=== PATIENT | female | born 1950 | race Caucasian/White ===

== ENCOUNTER 2018-12-15 10:33 | Inpatient (IN) ==
[2018-12-15] MEDS ORDERED: HEPARIN (PORCINE) 1000 UNIT/ML 10 ML (CATH LAB USE ONLY) ONE (10:43)
[2018-12-15] MEDS ORDERED: NiCARDipine HCL INJ 2.5 MG/ML 10 ML AMP ONE (10:43)
[2018-12-15] MEDS ORDERED: SODIUM CHLORIDE 0.9% 1000ML 1,000 ML IV STA (10:44)
[2018-12-15] MEDS ORDERED: MIDAZOLAM HCL 1 MG/ML 2ML VIAL ONE (10:44)
[2018-12-15] MEDS ORDERED: fentaNYL citrate 100 MCG/2 ML VIAL ONE (10:44)
[2018-12-15] MEDS ORDERED: NITROGLYCERIN/D5W 100MCG/ML 20ML SYR ONE (10:44)
[2018-12-15] MEDS ORDERED: GLUCAGON 2 MG in SYRINGE 0 ML IV STA (10:49)
[2018-12-15 10:50] LABS: Basophils # (auto) 0.02 K/uL (0-0.2); Basophils % (auto) 0.2 %; Eosinophils # (auto) 0.23 K/uL (0-0.5); Eosinophils % (auto) 1.8 %; Hematocrit (blood only) 39.6 % (37-47); Hemoglobin 13.8 g/dL (12.0-16.0); Immature Granulocytes # (auto) 0.18 K/uL (0.00-0.02); Immature Granulocytes % (auto) 1.4 %; Lymphocytes # (auto) 3.81 K/uL (1.2-3.4); Lymphocytes % (auto) 29.5 %; Mean Corpuscular Hgb Conc 34.8 g/dL (32-36); Mean Corpuscular Volume 90.6 fL (80-100); Mean Platelet Volume 10.9 fL (7.4-10.4); Monocytes % (auto) 9.3 %; Neutrophils # (auto) 7.47 K/uL (1.4-6.5); Neutrophils % (auto) 57.8 %; Platelet Count 219 K/uL (130-400); RDW Standard Deviation 43.1 fL (36.4-46.3); Red Blood Count 4.37 M/uL (4.2-5.4); White Blood Count 12.91 K/uL (4.8-10.8)
[2018-12-15] MEDS ORDERED: GLUCAGON FOR INJ 1 MG VIAL ONE (10:52)
[2018-12-15 10:54] LABS: iSTAT Creatinine 1.1 mg/dl (0.6-1.3); iSTAT Hemoglobin 12.6 g/dl (12.0-16.0); iSTAT Ionized Calcium 1.21 mmol/l (1.12-1.32); iSTAT Potassium 3.9 mEq/L (3.3-5.0)
[2018-12-15] MEDS ORDERED: ONDANSETRON INJ 2 MG/ML 2 ML VIAL ONE (11:00)
--- NOTE | 2018-12-15 11:02 | XRay Report ---
XR chest 1V portable HISTORY: Atypical Chest pain COMPARISON: None. FINDINGS: The heart is mildly enlarged. No definite pneumothorax. Defibrillator pads overlie the mid chest. Interstitial and vascular thickening consistent with mild pulmonary edema. No focal lung conso lidations. No pleural effusions. IMPRESSION: Mild cardiomegaly with mild interstitial pulmonary edema. Electronically signed by: Jairon Patel M.D. 12/15/2018 11:01 AM
[2018-12-15 11:03] LABS: INR 1.1 (0.9-1.1); Partial Thromboplastin Ratio 0.9; Partial Thromboplastin Time 23.4 Seconds (21.0-31.0); Prothrombin Time 11.2 Seconds (9.0-12.0)
[2018-12-15 11:08] LABS: Albumin Level 3.3 gm/dl (3.4-5.0); BUN Creatinine Ratio 21.1 (10-20); Calcium 9.2 mg/dl (8.5-10.1); Creatinine Clr Calc Pharmacy 45.9 ml/min; Est GFR (African American) 47.2; Est GFR (Non-African American) 40.7; Potassium 4.4 mmol/L (3.5-5.1)
[2018-12-15 11:10] LABS: Albumin Globulin Ratio 0.9 (0.9-2); Bilirubin,Total 0.6 mg/dl (0.2-1); Globulin 3.6 gm/dl (2.5-4.0); Total Protein 6.9 gm/dl (6.4-8.2)
[2018-12-15 11:19] LABS: Beta-Hydroxybutyrate 4.45 mg/dl (0.2-2.81); Troponin I 0.035 ng/ml (0-0.045)
[2018-12-15 11:32] LABS: T4 Free Thyroxine 1.07 ng/dl (0.8-1.6)
[2018-12-15 11:42] LABS: Lyme Ab IgG w/WB Rflx Negative (Negative)
[2018-12-15 11:43] LABS: Lyme Ab IgM w/WB Rflx Negative (Negative)
[2018-12-15] MEDS ORDERED: GLUCOSE 40% GEL 15 GM TUBE PO PRN (12:00)
[2018-12-15] MEDS ORDERED: ICU ELECTROLYTE REPLACEMENT PROTOCOL PRN (12:00)
[2018-12-15] MEDS ORDERED: CARBOHYDRATES FOR HYPOGLYCEMIA PO PRN (12:00)
[2018-12-15] MEDS ORDERED: LORazepam 0.5 MG/1 ML VIAL IV PRN (12:00)
[2018-12-15] MEDS ORDERED: ICU PROTOCOL FOR HYPERGLYCEMIA PRN (12:00)
[2018-12-15] MEDS ORDERED: DEXTROSE 50% 50 ML SYRINGE IV PRN (12:00)
[2018-12-15] MEDS ORDERED: SODIUM CHLORIDE 0.9% 1000ML 1,000 ML IV SCH (12:00)
[2018-12-15] MEDS ORDERED: GLUCAGON FOR INJ 1 MG VIAL SQ PRN (12:00)
[2018-12-15] MEDS ORDERED: GLUCOSE 10 TABS/TUBE PO PRN (12:00)
[2018-12-15] MEDS ORDERED: CARVEDILOL 3.125 MG TAB PO ONE (12:20)
[2018-12-15] MEDS ORDERED: FUROSEMIDE 20 MG in SYRINGE 0 ML IV ONE (12:23)
[2018-12-15] MEDS ORDERED: PERFLUTREN LIPID MICROSPHERE (DEFINITY) IV ONE (12:37)
--- NOTE | 2018-12-15 12:40 | Emergency Department Note ---
Entered by Natan Fay acting as a scribe for ED Provider Note CHIEF COMPLAINT: heart block, syncope HISTORY OF PRESENT ILLNESS: The patient is a 68 year old female who presents to the Emergency Room with a heart block. The patient passed out last night and again this morning. Her heart rate was in the 30s prior to arrival, and she was given two doses of atropine. EMS reports that when she passed out this morning, she fell in the shower, striking the back of her head and injuring her lower back. She states that she has lower back pain exacerbated by breathing but denies head or neck pain. She reports that she was told in the past that she was pre-diabetic. She checked her blood sugar with her husbands monitor, and it was in the 500s yesterday and in the 200s today. She notes ankle swelling in the past week and reports a current cough and nausea. She states that she has some left leg numbness from a prior ganglion cyst. She reports that she is currently visiting from [place]. She denies any other medical problems. She notes that she has been trying to keep hydrated. Pt denies LOC, headache, fevers, chills, diaphoresis, visual changes, neck pain, chest pain, breathing difficulties, vomiting, abdominal pain, melena, hematochezia, diarrhea, urinary symptoms, weakness, lymphadenopathy, rash, or other complaints. REVIEW OF SYSTEMS: See HPI for pertinent positives and negatives. A total of ten systems were reviewed and were otherwise negative. PMHx/PSHx: ganglion cyst, pre-diabetic SOCIAL HISTORY: Patient lives at home in [place]. PHYSICAL EXAM: GENERAL: Awake, alert, well-appearing, in no distress HENT: Normocephalic, atraumatic. Oropharynx unremarkable. EYES: Normal conjunctiva. Sclera non-icteric. NECK: Inspection normal. Non-tender. Supple. No nuchal rigidity. FROM. No masses. RESPIRATORY: Clear to auscultation. No wheezes. No rales. Normal respiratory effort. CARDIAC: Bradycardia. Normal rhythm. No murmurs. No rubs. Extremities warm and well perfused. Pulses equal. No JVD. GI: Soft, non-distended. No tenderness to palpation. No rebound or guarding. No masses. RECTAL: Deferred. MUSCULOSKELETAL: Atraumatic. Chest examination reveals no tenderness. The back is symmetrical on inspection without obvious abnormality or step-offs, but there is midline lumbar tenderness to palpation. There is no CVA tenderness to palpation. No joint edema. LOWER EXTREMITIES: Calves are equal size bilaterally and non-tender. Trace edema. No discoloration. NEURO: Normal sensorium. No sensory or motor deficits noted. SKIN: No rash or jaundice noted. EMERGENCY DEPARTMENT COURSE: 1020: I consulted Dr. Connolly Cardiology, who states that he is on his way to the ER. 1033: The patient has arrived to room A1. Past medical records reviewed. The patient was evaluated, and a complete history and physical examination were performed. 1108: Dr. Connolly is taking the patient to the laboratory apparatus glass blower. Dr. David [facility] Hospitalist will evaluate the patient for hospitalization. MEDICAL DECISION MAKING: Triage Nursing notes reviewed and agree them. Additional history obtained from the EMS crew and her . The patient's history was concerning for syncope and bradycardia. Differential diagnosis: Etiologies such as infection, hypoglycemia, electrolyte abnormalities, cardiac sources, intracerebral event, toxicologic, neurologic, as well as others were entertained. Physical examination: As above low back tenderness. Bradycardia noted. ER treatment provided: IV hydration with normal saline IV glucagon 2 mg given at cardiology's request. On reassessment the patient remained bradycardic but had normal blood pressure. Mental status is normal. Glucagon had no effect. Diagnostics interpretation by me: ECG: Marked sinus bradycardia. No acute ischemia. Heart block noted. The labs revealed a slight leukocytosis on CBC. Chemistry panel was unremarkable except for hyperglycemia. Lyme negative. Troponin negative. Imaging studies: Chest x-ray shows mild pulmonary edema Consultation: A consultation was placed with the flour mixer on-call, Dr. Sinclair. He asked that I discussed the case with the interventional list, Dr. Connolly. The case was discussed. Given the possible need for pacemaker he asked that a heart alert be called. I heart alert was called. Cardiology evaluated the patient in the emergency department. Temporary pacer was felt to be necessary. The patient was taken to the catheterization suite for further management. Consultation was also made with Dr. David for admission. The patient was taken to the catheterization suite prior to her lumbar imaging. Cardiology and internal medicine were made aware. Nursing was made aware as well. IMPRESSION: heart block, syncope, hyperglycemia, lower back pain PLAN: taken to catheterization lab, hospitalization CRITICAL CARE: I have personally spent 35 minutes of critical care time in the direct management of this patient. This includes bedside care, interpretation of diagnostic studies, and testing, discussion with consultants, patient, and family members, and other required patient management activities. This 35 minutes is in excess of all separately billable procedures. ATTESTATION: The scribe's documentation has been prepared under my direction and personally reviewed by me in its entirety. I confirm that the note above accurately reflects all work, treatment, procedures, and medical decision making performed by me. Impression & Plan Heart block, Syncope, Hyperglycemia, Lower back pain Past Med/Surg History Medical History Ganglion cyst Family History Other AAA (abdominal aortic aneurysm) Social History Current Living Situation Comment: lives in [place] Feels Safe at Home: Yes Smoking Status: Former smoker Hx Substance Use: No Results & Data Vital Signs Vital Signs - 24 hr 12/15/18 10:35 12/15/18 10:43 12/15/18 11:03 Temperature 36.6 C Temperature Source Oral Sepsis Recent Fever Within 48 Hours No Sepsis New/Unexplained Change in Mental Status No Sepsis Action Taken by Nursing No Action Required Pulse Rate 35 L 30 L 65 Pulse Rate [Left] 31 L Pulse Rate from SpO2 Sensor 35 L Respiratory Rate 14 12 16 Respiratory Effort / Characteristics Spontaneous Blood Pressure 102/70 Blood Pressure [Left Arm] Blood Pressure Mean 80 Blood Pressure Mean [Left Arm] Blood Pressure Position Lying Blood Pressure Position [Left Arm] Lying Pulse Oximetry 90 95 96 Oxygen Delivery Method Room Air Nasal Cannula Oxygen Flow Rate 2 12/15/18 11:04 Temperature Temperature Source Sepsis Recent Fever Within 48 Hours Sepsis New/Unexplained Change in Mental Status Sepsis Action Taken by Nursing Pulse Rate Pulse Rate [Left] 52 L Pulse Rate from SpO2 Sensor Respiratory Rate 16 Respiratory Effort / Characteristics Blood Pressure Blood Pressure [Left Arm] 160/90 H Blood Pressure Mean Blood Pressure Mean [Left Arm] 113 Blood Pressure Position Blood Pressure Position [Left Arm] Pulse Oximetry 93 Oxygen Delivery Method Nasal Cannula Oxygen Flow Rate 3 Home Medications Current Medication List: was personally reviewed by me Laboratory Data Attestation: I reviewed the patient's lab results. Result diagrams: 12/15/18 10:28 12/15/18 10:28 Lab Results 12/15/18 12/15/18 12/15/18 Range/Units 10:28 10:28 10:28 WBC 12.91 H (4.8-10.8) K/uL RBC 4.37 (4.2-5.4) M/uL Hgb 13.8 (12.0-16.0) g/dL POC Hgb (12.0-16.0) g/dl Hct 39.6 (37-47) % POC Hct (37-47) % MCV 90.6 (80-100) fL MCH 31.6 (25-34) pg MCHC 34.8 (32-36) g/dL RDW Std Deviation 43.1 (36.4-46.3) fL RDW Coeff of Opal 13.0 (11.5-14.5) % Plt Count 219 (130-400) K/uL MPV 10.9 H (7.4-10.4) fL Immature Gran % (Auto) 1.4 % Neut % (Auto) 57.8 % Lymph % (Auto) 29.5 % [place] % (Auto) 9.3 % Eos % (Auto) 1.8 % Baso % (Auto) 0.2 % Immature Gran # (Auto) 0.18 H (0.00-0.02) K/uL Neut # (Auto) 7.47 H (1.4-6.5) K/uL Lymph # (Auto) 3.81 H (1.2-3.4) K/uL [place] # (Auto) 1.20 H (0.11-0.59) K/uL Eos # (Auto) 0.23 (0-0.5) K/uL Baso # (Auto) 0.02 (0-0.2) K/uL PT 11.2 (9.0-12.0) Seconds INR 1.1 (0.9-1.1) APTT 23.4 (21.0-31.0) Seconds PTT Ratio 0.9 POC Sodium (135-144) mEq/L Sodium (136-145) mmol/L POC Potassium (3.3-5.0) mEq/L Potassium (3.5-5.1) mmol/L POC Chloride (101-112) mEq/L Chloride (98-107) mmol/L Carbon Dioxide (21-32) mmol/L POC Total CO2 (24-31) mEq/l Anion Gap (3-11) POC Anion Gap (16-25) mmol/L POC BUN (7-18) mg/dl BUN (7-18) mg/dl Creatinine (0.6-1.2) mg/dl POC Creatinine (0.6-1.3) mg/dl Est Cr Clr Drug Dosing ml/min Est GFR ( Amer) Est GFR (Non-Af Amer) BUN/Creatinine Ratio (10-20) Glucose (70-99) mg/dl POC Glucose (other) (70-99) mg/dl Calcium (8.5-10.1) mg/dl POC Ioniz Calcium [place] (1.12-1.32) mmol/l Magnesium (1.8-2.4) mg/dl Total Bilirubin (0.2-1) mg/dl AST (15-37) U/L ALT (12-78) U/L Alkaline Phosphatase (45-117) U/L Total Creatine Kinase (26-192) U/L POC Troponin I (0-0.045) ng/ml Troponin I (0-0.045) ng/ml Total Protein (6.4-8.2) gm/dl Albumin (3.4-5.0) gm/dl Globulin (2.5-4.0) gm/dl Albumin/Globulin Ratio (0.9-2) Lipase (73-393) U/L Beta-Hydroxybutyric Acd (0.2-2.81) mg/dl TSH (0.300-4.500) uIu/ml Free T4 (0.8-1.6) ng/dl Lyme Disease IgG Ab Negative (Negative) Lyme Disease IgM Ab Negative (Negative) 12/15/18 12/15/18 12/15/18 Range/Units 10:28 10:39 10:44 WBC (4.8-10.8) K/uL RBC (4.2-5.4) M/uL Hgb (12.0-16.0) g/dL POC Hgb 12.6 (12.0-16.0) g/dl Hct (37-47) % POC Hct 37 (37-47) % MCV (80-100) fL MCH (25-34) pg MCHC (32-36) g/dL RDW Std Deviation (36.4-46.3) fL RDW Coeff of Opal (11.5-14.5) % Plt Count (130-400) K/uL MPV (7.4-10.4) fL Immature Gran % (Auto) % Neut % (Auto) % Lymph % (Auto) % [place] % (Auto) % Eos % (Auto) % Baso % (Auto) % Immature Gran # (Auto) (0.00-0.02) K/uL Neut # (Auto) (1.4-6.5) K/uL Lymph # (Auto) (1.2-3.4) K/uL [place] # (Auto) (0.11-0.59) K/uL Eos # (Auto) (0-0.5) K/uL Baso # (Auto) (0-0.2) K/uL PT (9.0-12.0) Seconds INR (0.9-1.1) APTT (21.0-31.0) Seconds PTT Ratio POC Sodium 135 (135-144) mEq/L Sodium 134 L (136-145) mmol/L POC Potassium 3.9 (3.3-5.0) mEq/L Potassium 4.4 (3.5-5.1) mmol/L POC Chloride 99 L (101-112) mEq/L Chloride 100 (98-107) mmol/L Carbon Dioxide 25 (21-32) mmol/L POC Total CO2 25 (24-31) mEq/l Anion Gap 9.0 (3-11) POC Anion Gap 16.0 (16-25) mmol/L POC BUN 25 H (7-18) mg/dl BUN 28 H (7-18) mg/dl Creatinine 1.33 H (0.6-1.2) mg/dl POC Creatinine 1.1 (0.6-1.3) mg/dl Est Cr Clr Drug Dosing 45.9 ml/min Est GFR ( Amer) 47.2 Est GFR (Non-Af Amer) 40.7 BUN/Creatinine Ratio 21.1 H (10-20) Glucose 343 H (70-99) mg/dl POC Glucose (other) 343 H (70-99) mg/dl Calcium 9.2 (8.5-10.1) mg/dl POC Ioniz Calcium [place] 1.21 (1.12-1.32) mmol/l Magnesium 2.0 (1.8-2.4) mg/dl Total Bilirubin 0.6 (0.2-1) mg/dl AST 35 (15-37) U/L ALT 49 (12-78) U/L Alkaline Phosphatase 114 (45-117) U/L Total Creatine Kinase 62 (26-192) U/L POC Troponin I < 0.03 (0-0.045) ng/ml Troponin I 0.035 (0-0.045) ng/ml Total Protein 6.9 (6.4-8.2) gm/dl Albumin 3.3 L (3.4-5.0) gm/dl Globulin 3.6 (2.5-4.0) gm/dl Albumin/Globulin Ratio 0.9 (0.9-2) Lipase 110 (73-393) U/L Beta-Hydroxybutyric Acd 4.45 H (0.2-2.81) mg/dl TSH 8.890 H (0.300-4.500) uIu/ml Free T4 1.07 (0.8-1.6) ng/dl Lyme Disease IgG Ab (Negative) Lyme Disease IgM Ab (Negative) Administered Medications Discontinued Medications Fentanyl Citrate (Fentanyl Citrate) Confirm Administered Dose 100 mcg .ROUTE .STK-MED ONE Stop: 12/15/18 10:45 Last Admin: 12/15/18 11:24 Dose: 25 mcg Documented by: [id number] Glucagon (Glucagen) Confirm Administered Dose 2 mg .ROUTE .STK-MED ONE Stop: 12/15/18 10:53 Last Admin: 12/15/18 10:55 Dose: 2 mg Documented by: [id number] Heparin Sodium (Porcine) (Heparin Iv Bolus (Director Independent Use Only)) Confirm Administered Dose 10,000 units .ROUTE .STK-MED ONE Stop: 12/15/18 10:44 Last Admin: 12/15/18 11:23 Dose: Not Given Documented by: [id number] Heparin Sodium/Sodium Chloride (Heparin Sod/Nss 2 Units/Ml) Confirm Administered Dose 3,000 units IV .STK-MED ONE Stop: 12/15/18 10:44 Last Admin: 12/15/18 11:23 Dose: Not Given Documented by: [id number] Sodium Chloride (Nss 1000ml) 1,000 mls @ 125 mls/hr IV .Q8H STA Stop: 12/15/18 18:43 Last Admin: 12/15/18 11:03 Dose: 125 mls/hr Documented by: [id number] Glucagon 2 mg/ Syringe 2 mls @ 1 mls/min IV NOW STA Stop: 12/15/18 10:50 Last Admin: 12/15/18 10:56 Dose: Not Given Documented by: [id number] Midazolam HCl (Versed) Confirm Administered Dose 2 mg .ROUTE .STK-MED ONE Stop: 12/15/18 10:45 Last Admin: 12/15/18 11:24 Dose: 1 mg Documented by: [id number] Nicardipine HCl (Cardene) Confirm Administered Dose 25 mg .ROUTE .STK-MED ONE Stop: 12/15/18 10:44 Last Admin: 12/15/18 11:23 Dose: Not Given Documented by: [id number] Nitroglycerin/Dextrose (Nitroglycerin/D5w 100 Mcg/Ml 20ml Syringe) Confirm Administered Dose 2,000 mcg .ROUTE .STK-MED ONE Stop: 12/15/18 10:45 Last Admin: 12/15/18 11:24 Dose: Not Given Documented by: [id number] Ondansetron HCl (Zofran) Confirm Administered Dose 4 mg .ROUTE .STK-MED ONE Stop: 12/15/18 11:01 Last Admin: 12/15/18 11:02 Dose: 4 mg Documented by: [id number] Imaging Data Radiologist's Impression: Radiology results as stated below per my review and the radiologist's interpretation: XR chest 1V portable HISTORY: Atypical Chest pain COMPARISON: None. FINDINGS: The heart is mildly enlarged. No definite pneumothorax. Defibrillator pads overlie the mid chest. Interstitial and vascular thickening consistent with mild pulmonary edema. No focal lung consolidations. No pleural effusions. IMPRESSION: Mild cardiomegaly with mild interstitial pulmonary edema. Electronically signed by: Jairon Patel M.D. 12/15/2018 11:01 AM ECG Data Attestation: I personally reviewed and interpreted this ECG as follows: Indication: bradycardia Rate (beats per minute): ventricular rate 30 Rhythm: other (3rd degree block) Findings: no PVC and no ST elevation Blood Pressure Blood Pressure Findings: Elevated blood pressure Blood Pressure Disposition: further management by hospitalist Discharge Plan Visit Data Chief Complaint: Cardiac Assessment Stated Complaint: syncope ED Provider: Gabriel Florentino Discharge Problem: Heart block, Syncope, Hyperglycemia, Lower back pain Patient Disposition: Admitted As Inpatient Discharge Instructions Interventions: ED Discharge Assessment Last Done: 12/15/18 11:09 Discharge Problem: Syncope Qualifiers: Syncope type: unspecified Qualified Code(s): R55 - Syncope and collapse Lower back pain Qualifiers: Chronicity: unspecified Back pain laterality: unspecified Sciatica presence: without sciatica Qualified Code(s): M54.5 - Low back pain The scribe's documentation has been prepared under my direction and personally reviewed by me in its entirety. I confirm that the note above accurately re flects all work, treatment, procedures, and medical decision making performed by me.
--- NOTE | 2018-12-15 12:51 | History & Physical Report ---
Date of Service December 15, 2018 Assessment & Plan (1) Heart block: Patient had evidence of heart block is unclear whether her syncopal episode was related to heart block or arrhythmia. Initial preliminary echocardiogram results have concern for depressed ejection fraction. Patient is a temporary pacemaker placed. Given the concern for acute systolic heart failure with a depressed ejection fraction she will be begun on carvedilol today and if her renal function is tolerant may begin RENÉ inhibitor tomorrow. She is given 1 dose of IV Lasix today. Cardiology consultation will be Dr. Sinclair for discussions of whether the patient is a permanent device the ER she had a Lyme test which was negative initial troponin was unremarkable and the patient had an initial free T4 which was normal (2) Hyperglycemia: Patient is known of prediabetes she says her sugars have been up of late. She has lost weight attempts to treat her prediabetes. In the emergency department her glucoses were 2-300. She will be brought in on a diabetic diet and initially start with an insulin sliding scale with carb coverage. If long- term insulin is required while employed diabetic education however she is not on any oral medications and once risk of cardiac intervention is passed we may institute sulfonylurea and metformin (3) Lower back pain: Patient has some low back pain after her fall she is pending a CT scan of her lumbar spine History of Present Illness Primary Care Provider: NO PCP Per ER physians note "The patient is a 68 year old female who presents to the Emergency Room with a heart block. The patient passed out last night and again this morning. Her heart rate was in the 30s prior to arrival, and she was given two doses of atropine. EMS reports that when she passed out this morning, she fell in the shower, striking the back of her head and injuring her lower back. She states that she has lower back pain exacerbated by breathing but denies head or neck pain. She reports that she was told in the past that she was pre- diabetic. She checked her blood sugar with her husbands monitor, and it was in the 500s yesterday and in the 200s today. She notes ankle swelling in the past week and reports a current cough and nausea. She states that she has some left leg numbness from a prior ganglion cyst. She reports that she is currently visiting from [place]. She denies any other medical problems. " Patient was taken urgently to the cardiac catheterization lab where temporary pacemaker was placed. Initial chest x-ray showed pulmonary edema consistent with likely systolic heart failure and she does upon further questioning give a history of prehospital exertional dyspnea and some chest heaviness. She is a distant smoking history but has quit since age 33 In the ICU she is stable has no shortness of breath chest pain or pressure Allergies Allergy/AdvReac Type Severity Reaction Status Date / Time amoxicillin Allergy Anaphylaxis Unverified 12/15/18 11:47 erythromycin base Allergy Unknown Unverified 12/15/18 11:47 Past Med/Surg History Medical History Ganglion cyst Prediabetes Family History Other AAA (abdominal aortic aneurysm) Social History Current Living Situation Comment: lives in [place] Feels Safe at Home: Yes Smoking Status: Former smoker Hx Substance Use: No Review of Systems ROS: well nourished well developed. No double vision blurry vision No problems with speech or swallowing No palpitations, as mentioned has some chest pain associate with the dyspnea episodes which resolved quickly No Wheezing or breathing issues as mentioned had some prehospital dyspnea on exertion No abdominal pain nausea vomiting diarrhea changes in appetite or weight No burning urine urine frequency or changes in color No focal joint pain or muscle pain No skin rashes or oral lesions No unusual bruising or bleeding No focused back pain, loss of strength patient has loss of some sensation after foot surgery on the left No changes in memory or confusion Physical Exam Vital Signs (Past 24 Hours): Last Vital Signs Temp 36.6 C 12/15/18 10:43 Pulse 52 L 12/15/18 11:04 Resp 16 12/15/18 11:04 BP 160/90 H 12/15/18 11:04 93 12/15/18 11:04 The patient appeared well nourished and normally developed. Vital signs as documented. Head exam is unremarkable. normocephalic, atraumatic Neck is without jugular venous distension, thyromegaly, or lymphademopathy Lungs are clear to auscultation and percussion. Cardiac exam reveals a regular rhythm paced on the monitor no murmurs are heard . First and second heart sounds normal. Abdominal exam reveals normal bowel sounds, no masses, no organomegaly Extremities are mildly edematous bilateral and both pedal pulses are present Neurologic exam is A&Ox3, strength is equal bilateral Psychologically seems neither anxious or depressed Skin is warm Dry without bruises or lesions (1) Lower back pain Back pain laterality: unspecified Chronicity: unspecified Sciatica presence: without sciatica Qualified Code(s): M54.5 - Low back pain
[2018-12-15] MEDS ORDERED: OXYCODONE HCL IR 5 MG TAB (IMMEDIATE RELEASE) PO PRN (12:57)
[2018-12-15] MEDS ORDERED: MoRPHine SULFATE 4 MG/ML 1 ML CARP\\VIAL IV PRN (12:57)
[2018-12-15] MEDS ORDERED: MoRPHine SULFATE 2 MG/ML CARP IV PRN (12:57)
--- NOTE | 2018-12-15 13:24 | XRay Report ---
RIGHT SHOULDER 3 VIEWS HISTORY: r shoulder pain COMPARISON: None. FINDINGS: There is no fracture or dislocation. The right clavicle is intact. There is mild AC joint a rthrosis. Mild supraspinatus calcific tendinitis. No radiopaque foreign bodies. IMPRESSION: No fracture or dislocation within the right shoulder. Electronically signed by: Jairon Patel M.D. 12/15/2018 1:22 PM
--- NOTE | 2018-12-15 13:27 | XRay Report ---
XR chest 1V portable HISTORY: S/P Temp pacer, supine please until CT spine done COMPARISON: Chest 12/15/2018. FINDINGS: No pneumothorax. No pleural effusions. Perihilar interstitial vascular thickening has impro lacie. This is consistent with mild pulmonary edema. The heart is borderline enlarged. IMPRESSION: Slight improvement in the mild interstitial pulmonary edema. Electronically signed by: Jairon Patel M.D. 12/15/2018 1:26 PM
--- NOTE | 2018-12-15 13:36 | Critical Care Consultation ---
Date of Consultation December 15, 2018 Assessment & Plan (1) Admitted to intensive care unit: The patient was found to be in complete heart block in the emergency room. She was taken to the cardiac maintenance shop laborer immediately and temporary pacemaker was placed. Currently she has got paced rhythm at 60 and she is hemodynamically stable and in fact her blood pressure is elevated and she is also oxygenating at 98% on 2 L nasal cannula. The patient also had echocardiogram done which revealed depressed ejection fraction of about 30 and she was in congestive heart failure with leg edema. The patient was started on carvedilol and also was given IV Lasix. We are going to monitor her urinary output. We also ruling out for acute myocardial infarction. Initial troponin was negative. She was also evaluated for Lyme disease which was negative also her TSH was elevated but T4 was reported as normal. The patient will be also on ICU glycemic control because of her elevated blood sugar to 300 range. She was complaining of shoulder pain as well as back pain. She had the shoulder x-ray done which did not reveal any injury or fracture. The patient is scheduled to go for CT of the back very soon. We are going to continue with all other management as prescribed. We will also monitor her urinary output. I have discussed with the primary care doctor Agustín as well as cardiology and we are going to follow the recommendations. I have spent greater than 55 minutes of critical care time. (2) Heart block: (3) Syncope: (4) Hyperglycemia: (5) Lower back pain: History of Present Illness Reason for Consultation: Heart block. Status post temporary pacemaker placement. Requesting Physician: Carlos Randolph MD Attending Physician: Carlos Randolph MD History of Present Illness Per ER physians note "The patient is a 68 year old female who presents to the Emergency Room with a heart block. The patient passed out last night and again this morning. Her heart rate was in the 30s prior to arrival, and she was given two doses of atropine. EMS reports that when she passed out this morning, she fell in the shower, striking the back of her head and injuring her lower back. She states that she has lower back pain exacerbated by breathing but denies head or neck pain. She reports that she was told in the past that she was pre- diabetic. She checked her blood sugar with her husbands monitor, and it was in the 500s yesterday and in the 200s today. She notes ankle swelling in the past week and reports a current cough and nausea. She states that she has some left leg numbness from a prior ganglion cyst. She reports that she is currently visiting from [place]. She denies any other medical problems. " Patient was taken urgently to the cardiac catheterization lab where temporary pacemaker was placed. Initial chest x-ray showed pulmonary edema consistent with likely systolic heart failure and she does upon further questioning give a history of prehospital exertional dyspnea and some chest heaviness. She is a distant smoking history but has quit since age 33. Currently the patient is resting comfortably and her heart rhythm is sinus and paced. She is still complaining of right shoulder pain. The x-ray was done which is pending. The chest x-ray did not reveal any obvious fracture or deformity but was consistent with the paced wire into the right ventricle and also was consistent with cardiomegaly and bilateral congestion. The patient d enies having any shortness of breath or chest pain or cough fever chills or hemoptysis. She also denies having any abdominal pain, nausea, vomiting. She has been complaining of back pain from the fall and also right shoulder pain. The shoulder x-ray did not reveal any fracture. 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 Also the review of system is as mentioned above in history of present illness. She also denies having any chest pain or palpitations. Denies having any swollen neck or lymphadenopathy. She denies having any abdominal pain nausea vomiting. Also denies having any fever chills wheezing orthopnea or paroxysmal nocturnal dyspnea. The patient also denies having any blood in the stool urine no painful micturition no diarrhea. She is not having any rash or lesions. She has been complaining of swollen ankles which has been going on for a few days. She is complaining of right shoulder pain after the fall and she is also complaining of back pain after the fall. Physical Exam Vital Signs (Past 24 Hours): Last Vital Signs Temp 36.6 C 12/15/18 10:43 Pulse 52 L 12/15/18 11:04 Resp 16 12/15/18 11:04 BP 160/90 H 12/15/18 11:04 Pulse Ox 93 12/15/18 11:04 Physical Exam: GENERAL: The patient appeared well nourished and normally developed. Resting comfortably not any acute distress. VITALS: Vital signs as documented. HEAD: Exam is unremarkable. normocephalic, atraumatic NECK: Is without jugular venous distension, thyromegaly, or lymphademopathy LUNGS: Bilateral air entry with decreased breath sounds to his bases. She also has crackles intermediate up bilaterally. There is no wheezing no rhonchi. CARDIAC: Exam reveals a regular rhythm paced on the monitor no murmurs are heard . First and second heart sounds normal. ABDOMINAL: Exam reveals normal bowel sounds, no masses, no organomegaly EXTREMITIES: Are mildly edematous bilateral and both pedal pulses are present NEUROLOGIC: Exam is A&Ox3, strength is equal bilateral and she is moving all her extremities. PSYCHOLOGICAL: Seems neither anxious or depressed SKIN: Is warm Dry without bruises or lesions Results & Data Laboratory Results Abnormal lab results 12/15/18 12/15/18 12/15/18 Range/Units 10:28 10:28 10:39 WBC 12.91 H (4.8-10.8) K/uL MPV 10.9 H (7.4-10.4) fL Immature Gran # (Auto) 0.18 H (0.00-0.02) K/uL Neut # (Auto) 7.47 H (1.4-6.5) K/uL Lymph # (Auto) 3.81 H (1.2-3.4) K/uL Woodward # (Auto) 1.20 H (0.11-0.59) K/uL Sodium 134 L (136-145) mmol/L POC Chloride 99 L (101-112) mEq/L POC BUN 25 H (7-18) mg/dl BUN 28 H (7-18) mg/dl Creatinine 1.33 H (0.6-1.2) mg/dl BUN/Creatinine Ratio 21.1 H (10-20) Glucose 343 H (70-99) mg/dl POC Glucose (other) 343 H (70-99) mg/dl Albumin 3.3 L (3.4-5.0) gm/dl Beta-Hydroxybutyric Acd 4.45 H (0.2-2.81) mg/dl TSH 8.890 H (0.300-4.500) uIu/ml Diagnostic Findings XR chest 1V portable HISTORY: S/P Temp pacer, supine please until CT spine done COMPARISON: Chest 12/15/2018. FINDINGS: No pneumothorax. No pleural effusions. Perihilar interstitial vascular thickening has improved. This is consistent with mild pulmonary edema. The heart is borderline enlarged. IMPRESSION: Slight improvement in the mild interstitial pulmonary edema. Electronically signed by: Jairon Patel M.D. 12/15/2018 1:26 PM RIGHT SHOULDER 3 VIEWS HISTORY: r shoulder pain COMPARISON: None. FINDINGS: There is no fracture or dislocation. The right clavicle is intact. There is mild AC joint arthrosis. Mild supraspinatus calcific tendinitis. No radiopaque foreign bodies. IMPRESSION: No fracture or dislocation within the right shoulder. Electronically signed by: Jairon Patel M.D. 12/15/2018 1:22 PM Medications Administered Current Inpatient Medications Carvedilol (Coreg) 3.125 mg PO BID SUSHILA Stop: 01/14/19 20:59 Dextrose (Dextrose 50%) 25 - 50 ml IV UD PRN; Protocol PRN Reason: Hypoglycemia Protocol Stop: 01/14/19 11:59 Glucagon (Glucagen) 1 mg SQ UD PRN; Protocol PRN Reason: Hypoglycemia Protocol Stop: 01/14/19 11:59 Glucose (Dex4 Glucose) 4 - 8 tabs PO UD PRN; Protocol PRN Reason: Hypoglycemia Protocol Stop: 01/14/19 11:59 Glucose (Glucose 40%) 15 - 30 gm PO UD PRN; Protocol PRN Reason: Hypoglycemia Protocol Stop: 01/14/19 11:59 Lorazepam (Ativan) 0.5 mg in 1 mls @ 1 mls/min IV Q4H PRN PRN Reason: Agitation Stop: 01/14/19 11:59 Insulin Aspart (Novolog Flexpen) 0 units SC ACHS SUSHILA Stop: 01/14/19 16:29 Miscellaneous (Icu Protocol For Hyperglycemia) 1 ea N/A PRN PRN; Protocol PRN Reason: Hyperglycemia Protocol Stop: 12/17/18 11:59 Miscellaneous ([facility]cu Electrolyte Replacement Protocol) 1 ea N/A UD PRN PRN Reason: for e-lyte repletion Stop: 12/22/18 11:59 Miscellaneous (Carbohydrates For Hypoglycemia) 15 - 30 gm PO UD PRN PRN Reason: Hypoglycemia Treatment Stop: 01/14/19 11:59 Morphine Sulfate (Morphine Sulfate) 2 mg IV Q4 PRN PRN Reason: Pain Stop: 12/29/18 12:56 Morphine Sulfate (Morphine Sulfate) 4 mg IV Q4 PRN PRN Reason: Pain Stop: 12/29/18 12:56 Oxycodone HCl (Roxicodone Immediate Rel) 10 mg PO Q6H PRN PRN Reason: Pain Stop: 12/29/18 12:56 (1) Syncope Syncope type: unspecified Qualified Code(s): R55 - Syncope and collapse (2) Lower back pain Back pain laterality: unspecified Chronicity: unspecified Sciatica presence: without sciatica Qualified Code(s): M54.5 - Low back pain
[2018-12-15] MEDS ORDERED: PHARMACY GLYCEMIC MGMT CONSULT SCH (14:00)
[2018-12-15] MEDS ORDERED: INSULIN ASPART 100 UNITS/ML 3 ML PEN SC ONE (14:15)
[2018-12-15] MEDS ORDERED: INSULIN GLARGINE SOLOSTAR 100 UNITS/ML 3 ML PEN SC ONE (14:15)
--- NOTE | 2018-12-15 14:15 | Pharmacy Report ---
Pharmacy Glycemic Short Note 2 - Date of Service December 15, 2018 - Glycemic Short BSG Results (Last 24 hours): 12/15/18 12/15/18 10:28 10:39 Glucose 343 H POC Glucose (other) 343 H OUTPATIENT ANTIDIABETIC REGIMEN: * n/a * A1c = ? ASSESSMENT: * Patient w/ h/o "pre-diabetes" admitted for [facility], now s/p temporary pacer. - Lyme screening negative. ACS workup ongoing. * GLU on admission 343. Of note, she did receive a dose of glucagon in the ED for bradycardia - her f/u BSG may be even higher * We do not have a recent A1c, however there is an order for this lab tomorrow AM * Will initiate weight based basal/bolus regimen based upon pt weight and "moderate" stress level. 1st doses of both Lantus and Novolog STAT. * Given possibility of ACS, will also add order to begin IV insulin drip per moderate stress protocol to begin if BSGs > 180 x 2 PLAN FOR INPATIENT GLYCEMIC CONTROL: * Basal insulin * Lantus SQ BID * 15 units x1 STAT * then per the following scale: 0 units if less than 110, 8 units if 110- 140, 15 units if > 140 * Bolus insulin * NovoLog per scale ACHS + 0000 + 0400 tonight * Goal Range: Low 110 mg/dL - High 140 mg/dL * Correction Factor: 25 mg/dL/unit * Nutritional / Prandial insulin per carb ratio of 1 unit per 8 grams CHO consumed * If BSG remains > 180 x 2 despite these insulin changes, begin IV insulin infusion per moderate stress protocol, goal range 120-180 PLAN FOR DISCHARGE: * to be determined
--- NOTE | 2018-12-15 14:46 | CT Scan Report ---
LUMBAR SPINE CT CT DOSE: 876.68 mGy.cm HISTORY: Low back pain. fall TECHNIQUE: Multiaxial CT images of the lumbar spine were performed and reformatted in the sagittal an d coronal plane without the use of contrast. A dose lowering technique was utilized adhering to the principles of ALARA. COMPARISON: None. FINDINGS: No fracture or subluxation within the lumbar spine. Moderate to severe disc space narrowing at L4-L5. Mild acute superior endplate compression fracture at T12. No associated retropulsion. This demonstrates less than 10% loss of height. Small bilateral pleural effusions. Calcified uterine fibr oid is identified. No significant central canal narrowing. IMPRESSION: There is an acute mild superior endplate compression fracture at T12 which demonstrates less than 10% loss of height. No significant central canal narrowing. Electronically signed by: Jairon Patel M.D. 12/15/2018 2:44 PM
--- NOTE | 2018-12-15 15:18 | Pharmacy Report ---
Pharmacy Glycemic Short Note 2 - Date of Service December 15, 2018 - Glycemic Short BSG Results (Last 24 hours): 12/15/18 12/15/18 10:28 10:39 Glucose 343 H POC Glucose (other) 343 H OUTPATIENT ANTIDIABETIC REGIMEN: * ASSESSMENT: * PLAN FOR INPATIENT GLYCEMIC CONTROL: * Hold outpatient oral diabetes medications * Basal insulin * Lantus [] units SQ BID * Bolus insulin * NovoLog per scale ACHS or Q6hrs while NPO * Goal Range: Low [] mg/dL - High [] mg/dL * Correction Factor: [] mg/dL/unit * Nutritional / Prandial insulin per carb ratio of 1 unit per [] grams CHO consumed PLAN FOR DISCHARGE: *
[2018-12-15] MEDS: INSULIN ASPART 100 UNITS/ML 3 ML PEN SC SCH ×2 (16:34→21:13)
[2018-12-15 17:11] LABS: Appearance Urine Clear (Clear); Bacteria Urine Automated Negative (Negative); Bilirubin Urine Negative (Negative); Blood Urine Trace (Negative); Color Urine Yellow; Epithelial Cell Urine Auto 20-30 /lpf (0-5); Glucose Urine UA 3+ (Negative); Ketones Urine Negative (Negative); Leukocyte Esterase Urine 2+ (Negative); Nitrite Urine Negative (Negative); Protein Urine 1+ (Negative); RBC Urine Automated 0-4 /hpf (0-4); Specific Gravity Urine 1.015 (1.000-1.030); Urobilinogen Urine Negative (Negative); WBC Urine Automated >30 /hpf (0-5)
[2018-12-15] MEDS ORDERED: NovoLIN-R BOLUS FROM BAG IV ONE (18:45)
[2018-12-15] MEDS ORDERED: INSULIN REGULAR 250 UNITS in SODIUM CHLORIDE 0.9% 247.5 ML IV SCH (18:45)
[2018-12-15] MEDS ORDERED: INSULIN GLARGINE SOLOSTAR 100 UNITS/ML 3 ML PEN SC SCH (21:00)
[2018-12-15] MEDS: CARVEDILOL 3.125 MG TAB PO SCH (21:12)
[2018-12-15] MEDS: HEPARIN SOD 5,000 UNIT/0.5 ML VIAL SQ SCH (21:15)
--- NOTE | 2018-12-15 21:32 | Operative Report ---
DATE OF OPERATION: 12/15/2018 INDICATIONS: Presyncope then syncope in a 68-year-old female with a past medical history of "prediabetes" with a second-degree type 2 AV block, 1 and 3 conduction. Effective mercedes response of 30 beats per minute with normal blood pressure. PROCEDURE PERFORMED: Include a central venous access temporary pacer, radiological interpretation and supervision. METHOD: Upon arrival in the skill labor, the patient was prepped and draped in the usual sterile fashion. After local infiltration of 2% lidocaine, a 6-Moroccan glide sheath was placed in the right internal jugular via the central approach. Sheath was aspirated and flushed and sutured to the right neck. A 5-[place]occan balloon tipped pacing wire was advanced under fluoroscopic guidance to the inferior aspect of the right ventricle, where secure position was located and pacer threshold was determined to be 1 milliamp. The pacer wire was sutured to the sheath at 33 cm and a sterile sleeve was secured to the sheath. Sterile dressing was applied. The patient returned to her room in good condition. COMPLICATIONS: None. FINDINGS: The patient was pacing at 60 beats per minute with an output of 5 milliamps at full demand on departure from the skill labor. IMPRESSION: Successful temporary pacemaker. I attest to the content of the Intraoperative Record and any orders documented therein. Any exception s are noted below.
[2018-12-16] MEDS ORDERED: INSULIN ASPART 100 UNITS/ML 3 ML PEN SC SCH
[2018-12-16] MEDS: HEPARIN SOD 5,000 UNIT/0.5 ML VIAL SQ SCH ×3 (05:44→20:33)
[2018-12-16] MEDS: CARVEDILOL 3.125 MG TAB PO SCH (07:36)
--- NOTE | 2018-12-16 07:36 | Hospitalist Progress Note ---
Date of Service December 16, 2018 Assessment & Plan (1) Heart block: Patient had evidence of heart block is unclear whether her syncopal episode was related to heart block or arrhythmia. Initial preliminary echocardiogram results have concern for depressed ejection fraction. Patient is a temporary pacemaker placed. Given the concern for acute systolic heart failure with a depressed ejection fraction patient will proceed to ischemic workup to try to determine if her depressed ejection fraction is from ischemia which likely could also impact her conducting system. This will be repaired if found but if not the patient will then proceed to likely permanent pacemaker and possible defibrillator (2) Hyperglycemia: Patient is known of prediabetes she says her sugars have been up of late. She has lost weight attempts to treat her prediabetes. Sliding scale plus long- term insulin ,diabetic education will help us determine her long-term treatment course since she is not from the area we may try metformin once her interventional cardiac procedures past, hemoglobin A1c was ordered on admission will not be run until Monday (3) Thoracic compression fracture: Subjective this pt does not have any symptoms, Dr Sinclair did turn down pacer to 30 and there was no intrinisic greens picker so will proceed to ischemic workup and possible pacemaker this week Review of Systems ROS: well nourished well developed. No double vision blurry vision No problems with speech or swallowing No palpitations, chest pain or pressure trace lower extremity swelling No Wheezing or breathing issues No abdominal pain nausea vomiting diarrhea No burning urine urine frequency or changes in color No focal joint pain or muscle pain No skin rashes or oral lesions No unusual bruising or bleeding No focused back pain or numbness or loss of strength No changes in memory or confusion Physical Exam Vital Signs (Past 24 Hours): Last Vital Signs Temp 36.7 C 12/16/18 04:00 Pulse 60 12/16/18 06:00 Resp 16 12/16/18 06:00 BP 149/92 H 12/16/18 06:00 Pulse Ox 95 12/16/18 06:00 the patient appeared well nourished and normally developed. Vital signs as documented. Head exam is unremarkable. normocephalic, atraumatic Neck is without jugular venous distension, thyromegaly, or lymphademopathy Lungs are clear to auscultation and percussion. Cardiac exam reveals Rhythm is regular it is paced on the monitor. First and second heart sounds normal. Abdominal exam reveals normal bowel sounds, no masses, no organomegaly Extremities are mildly edematous and both pedal pulses are present Neurologic exam is A&Ox3, no focal deficits, strength is equal bilateral Psychologically seems neither anxious or depressed Skin is warm Dry without bruises or lesions
[2018-12-16 07:52] LABS: BUN Creatinine Ratio 22.8 (10-20); Calcium 8.7 mg/dl (8.5-10.1); Creatinine Clr Calc Pharmacy 65.4 ml/min; Est GFR (African American) 71.7; Est GFR (Non-African American) 61.9; Magnesium 1.8 mg/dl (1.8-2.4); Potassium 3.9 mmol/L (3.5-5.1)
[2018-12-16 07:55] LABS: Chol HDL Ratio 4; Cholesterol 155 mg/dl (0-200); HDL Cholesterol 43 mg/dl; LDL Cholesterol Calculated 83 mg/dl; Triglycerides 147 mg/dl (0-150); VLDL Cholesterol 29 mg/dl
[2018-12-16 07:57] LABS: Phosphorus 3.5 mg/dl (2.5-4.9); Troponin I 0.492 ng/ml (0-0.045)
[2018-12-16] MEDS: INSULIN ASPART 100 UNITS/ML 3 ML PEN SC SCH ×4 (08:05→20:38)
--- NOTE | 2018-12-16 08:54 | Critical Care Progress Note ---
Date of Service December 16, 2018 Assessment & Plan (1) Admitted to intensive care unit: The patient received temporary pacemaker yesterday. Overall she seems to be doing better. She has got paced rhythm at 60. She is hemodynamically stable. Her pain has also improved but she is still having some pain in her back where she has got fractured vertebra. She denies having any headache dizziness or syncopal episode. Also she is being ruled out for myocardial infarction. Her troponin seems to be going down. The patient is scheduled for go for cardiac cath tomorrow and also possibility of AICD placement and a permanent pacemaker. We also controlling her blood sugar in ICU with ICU glyc emic control. We have reviewed her chest x-ray and a shoulder x-ray and they did not reveal any abnormalities but the CT scan of the lumbar spine revealed compression fracture of T12 vertebra. We are going to continue with all the management as prescribed and we also going to follow the recommendation from the cardiology. She will be also out of bed to chair as tolerated. Her magnesium was also low which we have replaced with 2 g of magnesium. I have discussed with the patient in detail and answered all questions. I have also discussed with the primary care as well as the field assembly supervisor. Have spent greater than 35 minutes of critical care time. (2) Heart block: (3) Syncope: (4) Hyperglycemia: (5) Lower back pain: Subjective The patient is resting comfortably. The patient received the pacemaker yesterday and currently she has got a paced rhythm at 60/min. Currently she is hemodynamically stable. She is still complaining of back pain. The patient had a CT of the spine done which revealed compression fracture of the T12. She is still also complaining pain in her right shoulder after the fall and the shoulder x-ray and that did not reveal any abnormalities. She denies having any headache dizziness or syncopal episode. Also denies having any swollen glands. The patient also denies having any chest pain or palpitations. Denies having any abdominal pain nausea vomiting. She has been complaining of back pain as well as shoulder pain. She was also evaluated by cardiology and she is scheduled to go for cardiac cath most probably tomorrow. She may also go for permanent pacemaker placement and or AICD. Physical Exam Vital Signs (Past 24 Hours): Last Vital Signs Temp 36.7 C 12/16/18 04:00 Pulse 60 12/16/18 06:00 Resp 16 12/16/18 06:00 BP 149/92 H 12/16/18 06:00 Pulse Ox 95 12/16/18 06:00 Physical Exam: GENERAL: The patient appeared well nourished and normally developed. Resting comfortably not any acute distress. VITALS: Vital signs as documented. HEAD: Exam is unremarkable. normocephalic, atraumatic NECK: Is without jugular venous distension, thyromegaly, or lymphademopathy LUNGS: Bilateral air entry with decreased breath sounds to his bases. She also has crackles mcc up bilaterally. There is no wheezing no rhonchi. CARDIAC: Exam reveals a regular rhythm paced on the monitor no murmurs are heard . First and second heart sounds normal. ABDOMINAL: Exam reveals normal bowel sounds, no masses, no organomegaly EXTREMITIES: Are mildly edematous bilateral and both pedal pulses are present NEUROLOGIC: Exam is A&Ox3, strength is equal bilateral and she is moving all her extremities. PSYCHOLOGICAL: Seems neither anxious or depressed SKIN: Is warm Dry without bruises or lesions Results & Data Laboratory Results Abnormal lab results 12/15/18 12/15/18 12/15/18 Range/Units 10:28 10:39 14:44 Sodium 134 L (136-145) mmol/L POC Chloride 99 L (101-112) mEq/L POC BUN 25 H (7-18) mg/dl BUN 28 H (7-18) mg/dl Creatinine 1.33 H (0.6-1.2) mg/dl BUN/Creatinine Ratio 21.1 H (10-20) Glucose 343 H (70-99) mg/dl POC Glucose 385 H* (70-99) POC Glucose (other) 343 H (70-99) mg/dl Troponin I (0-0.045) ng/ml Albumin 3.3 L (3.4-5.0) gm/dl Beta-Hydroxybutyric Acd 4.45 H (0.2-2.81) mg/dl TSH 8.890 H (0.300-4.500) uIu/ml Urine Protein (Negative) Urine Glucose (UA) (Negative) Urine Blood (Negative) Ur Leukocyte Esterase (Negative) Urine WBC (Auto) (0-5) /hpf U Epithel Cells (Auto) (0-5) /lpf 12/15/18 12/15/18 12/15/18 Range/Units 16:10 16:25 16:28 Sodium (136-145) mmol/L POC Chloride (101-112) mEq/L POC BUN (7-18) mg/dl BUN (7-18) mg/dl Creatinine (0.6-1.2) mg/dl BUN/Creatinine Ratio (10-20) Glucose (70-99) mg/dl POC Glucose 364 H* 381 H* (70-99) POC Glucose (other) (70-99) mg/dl Troponin I (0-0.045) ng/ml Albumin (3.4-5.0) gm/dl Beta-Hydroxybutyric Acd (0.2-2.81) mg/dl TSH (0.300-4.500) uIu/ml Urine Protein 1+ H (Negative) Urine Glucose (UA) 3+ H (Negative) Urine Blood Trace H (Negative) Ur Leukocyte Esterase 2+ H (Negative) Urine WBC (Auto) >30 H (0-5) /hpf U Epithel Cells (Auto) 20-30 H (0-5) /[facility] 12/15/18 12/15/18 12/15/18 Range/Units 18:05 18:08 20:24 Sodium (136-145) mmol/L POC Chloride (101-112) mEq/L POC BUN (7-18) mg/dl BUN (7-18) mg/dl Creatinine (0.6-1.2) mg/dl BUN/Creatinine Ratio (10-20) Glucose (70-99) mg/dl POC Glucose 275 H 126 H (70-99) POC Glucose (other) (70-99) mg/dl Troponin I 1.000 H* (0-0.045) ng/ml Albumin (3.4-5.0) gm/dl Beta-Hydroxybutyric Acd (0.2-2.81) mg/dl TSH (0.300-4.500) uIu/ml Urine Protein (Negative) Urine Glucose (UA) (Negative) Urine Blood (Negative) Ur Leukocyte Esterase (Negative) Urine WBC (Auto) (0-5) /hpf U Epithel Cells (Auto) (0-5) /[facility] 12/15/18 12/15/18 12/15/18 Range/Units 21:07 22:11 23:25 Sodium (136-145) mmol/L POC Chloride (101-112) mEq/L POC BUN (7-18) mg/dl BUN (7-18) mg/dl Creatinine (0.6-1.2) mg/dl BUN/Creatinine Ratio (10-20) Glucose (70-99) mg/dl POC Glucose 136 H 141 H 138 H (70-99) POC Glucose (other) (70-99) mg/dl Troponin I (0-0.045) ng/ml Albumin (3.4-5.0) gm/dl Beta-Hydroxybutyric Acd (0.2-2.81) mg/dl TSH (0.300-4.500) uIu/ml Urine Protein (Negative) Urine Glucose (UA) (Negative) Urine Blood (Negative) Ur Leukocyte Esterase (Negative) Urine WBC (Auto) (0-5) /hpf U Epithel Cells (Auto) (0-5) /[facility] 12/16/18 12/16/18 12/16/18 Range/Units 00:25 03:02 05:06 Sodium (136-145) mmol/L POC Chloride (101-112) mEq/L POC BUN (7-18) mg/dl BUN (7-18) mg/dl Creatinine (0.6-1.2) mg/dl BUN/Creatinine Ratio (10-20) Glucose (70-99) mg/dl POC Glucose 133 H 128 H 126 H (70-99) POC Glucose (other) (70-99) mg/dl Troponin I (0-0.045) ng/ml Albumin (3.4-5.0) gm/dl Beta-Hydroxybutyric Acd (0.2-2.81) mg/dl TSH (0.300-4.500) uIu/ml Urine Protein (Negative) Urine Glucose (UA) (Negative) Urine Blood (Negative) Ur Leukocyte Esterase (Negative) Urine WBC (Auto) (0-5) /hpf U Epithel Cells (Auto) (0-5) /[facility] 12/16/18 12/16/18 12/16/18 Range/Units 07:02 07:06 08:01 Sodium (136-145) mmol/L POC Chloride (101-112) mEq/L POC BUN (7-18) mg/dl BUN 22 H (7-18) mg/dl Creatinine (0.6-1.2) mg/dl BUN/Creatinine Ratio 22.8 H (10-20) Glucose 118 H (70-99) mg/dl POC Glucose 119 H 154 H (70-99) POC Glucose (other) (70-99) mg/dl Troponin I 0.492 H* (0-0.045) ng/ml Albumin (3.4-5.0) gm/dl Beta-Hydroxybutyric Acd (0.2-2.81) mg/dl TSH (0.300-4.500) uIu/ml Urine Protein (Negative) Urine Glucose (UA) (Negative) Urine Blood (Negative) Ur Leukocyte Esterase (Negative) Urine WBC (Auto) (0-5) /hpf U Epithel Cells (Auto) (0-5) /lpf 12/16/18 12/16/18 12/16/18 Range/Units 09:07 09:57 11:02 Sodium (136-145) mmol/L POC Chloride (101-112) mEq/L POC BUN (7-18) mg/dl BUN (7-18) mg/dl Creatinine (0.6-1.2) mg/dl BUN/Creatinine Ratio (10-20) Glucose (70-99) mg/dl POC Glucose 177 H 180 H 164 H (70-99) POC Glucose (other) (70-99) mg/dl Troponin I (0-0.045) ng/ml Albumin (3.4-5.0) gm/dl Beta-Hydroxybutyric Acd (0.2-2.81) mg/dl TSH (0.300-4.500) uIu/ml Urine Protein (Negative) Urine Glucose (UA) (Negative) Urine Blood (Negative) Ur Leukocyte Esterase (Negative) Urine WBC (Auto) (0-5) /hpf U Epithel Cells (Auto) (0-5) /lpf Diagnostic Findings LUMBAR SPINE CT CT DOSE: 876.68 mGy.cm HISTORY: Low back pain. fall TECHNIQUE: Multiaxial CT images of the lumbar spine were performed and reformatted in the sagittal and coronal plane without the use of contrast. A dose lowering technique was utilized adhering to the principles of ALARA. COMPARISON: None. FINDINGS: No fracture or subluxation within the lumbar spine. Moderate to severe disc space narrowing at L4-L5. Mild acute superior endplate compression fracture at T12. No associated retropulsion. This demonstrates less than 10% loss of height. Small bilateral pleural effusions. Calcified uterine fibroid is identified. No significant central canal narrowing. IMPRESSION: There is an acute mild superior endplate compression fracture at T12 which demonstrates less than 10% loss of height. No significant central canal narrowing. Electronically signed by: Jairon Patel M.D. 12/15/2018 2:44 PM Medications Administered Current Inpatient Medications Carvedilol (Coreg) 6.25 mg PO BID [facility] Stop: 01/15/19 20:59 Dextrose (Dextrose 50%) 25 - 50 ml IV UD PRN; Protocol PRN Reason: Hypoglycemia Protocol Stop: 01/14/19 11:59 Glucagon (Glucagen) 1 mg SQ UD PRN; Protocol PRN Reason: Hypoglycemia Protocol Stop: 01/14/19 11:59 Glucose (Dex4 Glucose) 4 - 8 tabs PO UD PRN; Protocol PRN Reason: Hypoglycemia Protocol Stop: 01/14/19 11:59 Glucose (Glucose 40%) 15 - 30 gm PO UD PRN; Protocol PRN Reason: Hypoglycemia Protocol Stop: 01/14/19 11:59 Heparin Sodium (Porcine) (Heparin Sodium (Porcine)) 5,000 units SQ Q8 [facility] Stop: 01/14/19 21:59 Last Admin: 12/16/18 05:44 Dose: 5,000 units Documented by: Lorazepam (Ativan) 0.5 mg in 1 mls @ 1 mls/min IV Q4H PRN PRN Reason: Agitation Stop: 01/14/19 11:59 Insulin Human Regular 250 (units/ Sodium Chloride) 250 mls @ 1.2 mls/hr IV .Q24H SUSHILA; Protocol Stop: 12/16/18 12:00 Last Titration: 12/16/18 11:15 Dose: 1.2 units/hr, 1.2 mls/hr Documented by: Insulin Aspart (Novolog Flexpen) 0 units SC ACHS [facility] Stop: 01/14/19 16:29 Last Admin: 12/15/18 16:34 Dose: 16 units Documented by: Insulin Glargine (Lantus Solostar Pen) 15 units SC BID [facility] Stop: 01/15/19 08:59 Last Admin: 12/16/18 08:06 Dose: 15 units Documented by: Miscellaneous (Icu Electrolyte Replacement Protocol) 1 ea N/A UD PRN PRN Reason: for e-lyte repletion Stop: 12/22/18 11:59 Miscellaneous (Carbohydrates For Hypoglycemia) 15 - 30 gm PO UD PRN PRN Reason: Hypoglycemia Treatment Stop: 01/14/19 11:59 Miscellaneous (Stop Order) 1 ea N/A ONE ONE Stop: 12/16/18 12:01 Miscellaneous Information (Consult Glycemic Management Pharmacy) 1 ea N/A UD [facility] Stop: 01/14/19 13:59 Morphine Sulfate (Morphine Sulfate) 2 mg IV Q4 PRN PRN Reason: Pain 1-5 Stop: 12/29/18 12:56 Morphine Sulfate (Morphine Sulfate) 4 mg IV Q4 PRN PRN Reason: Pain 6-10 Stop: 12/29/18 12:56 Oxycodone HCl (Roxicodone Immediate Rel) 10 mg PO Q6H PRN PRN Reason: Pain Stop: 12/29/18 12:56 (1) Lower back pain Back pain laterality: unspecified Chronicity: unspecified Sciatica presence: without sciatica Qualified Code(s): M54.5 - Low back pain (2) Syncope Syncope type: unspecified Qualified Code(s): R55 - Syncope and collapse
[2018-12-16] MEDS ORDERED: INSULIN GLARGINE SOLOSTAR 100 UNITS/ML 3 ML PEN SC SCH (09:00)
[2018-12-16] MEDS: MAGNESIUM SULFATE / D5W 1 GM/100 ML BAG IV SCH ×2 (09:15→10:06)
--- NOTE | 2018-12-16 09:50 | Pharmacy Report ---
Pharmacy Glycemic Short Note 2 - Date of Service December 16, 2018 - Glycemic Short BSG Results (Last 24 hours): 12/15/18 12/15/18 12/15/18 10:28 10:39 14:44 Glucose 343 H POC Glucose 385 H* POC Glucose (other) 343 H 12/15/18 12/15/18 12/15/18 16:25 16:28 18:08 Glucose POC Glucose 364 H* 381 H* 275 H POC Glucose (other) 12/15/18 12/15/18 12/15/18 20:24 21:07 22:11 Glucose POC Glucose 126 H 136 H 141 H POC Glucose (other) 12/15/18 12/16/18 12/16/18 23:25 00:25 03:02 Glucose POC Glucose 138 H 133 H 128 H POC Glucose (other) 12/16/18 12/16/18 12/16/18 05:06 07:02 07:06 Glucose 118 H POC Glucose 126 H 119 H POC Glucose (other) 12/16/18 12/16/18 08:01 09:07 Glucose POC Glucose 154 H 177 H POC Glucose (other) OUTPATIENT ANTIDIABETIC REGIMEN: * ASSESSMENT: 12/16 * Patient was started on IV insulin drip yesterday evening due to BSGs > 180 x 2 * Drip continues this AM at 1 unit/hr * BSGs well controlled while on drip * Lantus insulin was continued while pt was on the drip to allow for easier transition to SQ regimen today * Given current infusion rates and BSGs will transition to purely basal/bolus SQ regimen this AM. * Will resume insulin doses as ordered yesterday as these are reasonable starting points now that acute hyperglycemia controlled * A1c results not currently available 12/15 * Patient w/ h/o "pre-diabetes" admitted for [facility], now s/p temporary pacer. - Lyme screening negative. ACS workup ongoing. * GLU on admission 343. Of note, she did receive a dose of glucagon in the ED for bradycardia - her f/u BSG may be even higher * We do not have a recent A1c, however there is an order for this lab tomorrow AM * Will initiate weight based basal/bolus regimen based upon pt weight and "moderate" stress level. 1st doses of both Lantus and Novolog STAT. * Given possibility of ACS, will also add order to begin IV insulin drip per moderate stress protocol to begin if BSGs > 180 x 2 PLAN FOR INPATIENT GLYCEMIC CONTROL: * Basal insulin * Lantus 15 units x 1 this AM to allow for easier transition off drip. Will d/c' insulin drip at noon today. * then BID per the following scale: 0 units if less than 110, 8 units if 110-140, 15 units if > 140 * Bolus insulin * NovoLog per scale ACHS + 0000 + 0400 tonight * Goal Range: Low 110 mg/dL - High 140 mg/dL * Correction Factor: 25 mg/dL/unit * Nutritional / Prandial insulin per carb ratio of 1 unit per 8 grams CHO consumed PLAN FOR DISCHARGE: * to be determined
--- NOTE | 2018-12-16 10:14 | Cardiology Consultation ---
Date of Consultation December 15, 2018 Assessment & Plan (1) Syncope: The cause of her syncope is not clear. She did present with high-grade AV block but was asymptomatic, she had preadmission symptoms of difficulty with exertion which could be due to the AV block but we have not witnessed heart rate slow enough to cause syncope or pauses. These however could be transient and it is possible bradycardia was a cause of the syncope but not necessarily. Given her left ventricular dysfunction a ventricular tachycardia is also a definite possibility. It could also have been a bradycardia dependent ventricular arrhythmia. We need to keep her on the monitor, on a temporary pacemaker, until we decide how to proceed. (2) Heart block: She presented here with high-grade AV block, this was predominantly 3-1 AV block and periods of 2-1 AV block. I did not see periods of complete heart block although that is possible. A Lyme titer is negative, she does have some evidence of intraventricular conduction abnormalities on her baseline electrocardiogram although they are relatively minor. There does not appear to be a reversible cause therefore she will require pacing. Whether the pacing should be with a pacemaker or defibrillator remains unclear and whether it should be right ventricular apical or biventricular also remains unclear. (3) Cardiomyopathy: She has a definite cardiomyopathy on echocardiography and it is not explainable by her presentation. This predisposes her to ventricular arrhythmias which could have caused the syncope, therefore consideration has to be made to defibrillator implantation rather than pacing. We also need to try to sort out why she has a cardiomyopathy. Her Lyme titer is negative, we will obtain some other lab studies for other causes of cardiomyopathy but we also need to exclude ischemia. She did not have a cardiac catheterization but probably should, she does have hyperglycemia although was not had long-standing diabetes but still is in the age group and has risk factors and we need to exclude ischemia as a cause of her cardiomyopathy. She could have reversible ischemia as a cause of her cardiomyopathy although she does not appear to have had an acute infarction as a presentation to the hospital. History of Present Illness Reason for Consultation: GENNA, cardiomyopathy Attending Physician: Carlos Ranodlph MD History of Present Illness This is a 68-year-old woman who does not have any cardiovascular history and has been in quite good health. She is overweight and has had prediabetes but is on no medications. She does report that she has had some dyspnea over the last several days to perhaps a week, she noticed this especially several days prior to admission when she walked up steps and had to rest for perhaps a minute or 2 to catch her breath. She was here visiting from [place] over the weekend. She did not have presyncope or syncope until the evening before admission. She did transiently lose consciousness at dinnertime the evening before admission, this was witnessed by her , but she had no other symptoms and was not brought to the emergency room. On the morning of admission she went to the bathroom where she had a sudden syncopal event in the shower, this was not witnessed but was heard by her when she fell. She was found in the bathroom and was awake, rescue was called and she was bradycardic with a heart rate in the high 20s and low 30s but awake and alert. She was brought into the emergency room after receiving several doses of atropine with little change in heart rate. At the time of my evaluation in the emergency room shortly after she arrived she was feeling relatively well other than some low back pain. She was not having chest discomfort, was not lightheaded or dizzy and was not hypotensive. Her heart rate remained low with AV block and with her history of syncope she was taken to the Order Desk Caller urgently where a temporary pacemaker was placed. Allergies Allergy/AdvReac Type Severity Reaction Status Date / Time amoxicillin Allergy Anaphylaxis Unverified 12/15/18 11:47 erythromycin base Allergy Unknown Unverified 12/15/18 11:47 green pepper AdvReac Heartburn Verified 12/15/18 17:04 Patient History Medical History Ganglion cyst Prediabetes Family History Other AAA (abdominal aortic aneurysm) Social History Preferred Language: Divehi Communication Ability: Effective Circulation Clerk Required: No Beliefs That Will Affect Care: None Current Living Situation: Spouse Current Living Situation Comment: lives in [place] Other Information That Helps Us Care for You: No Feels Safe at Home: Yes Safety Concerns: Feels Safe At This Time Smoking Status: Former smoker Hx Alcohol Use: No Hx Substance Use: No Review of Systems Negative for lightheadedness, dizziness, palpitations, or presyncope but notable for sudden syncope as described. Recent dyspnea on exertion, some exertional exertional chest discomfort for several days. No orthopnea or PND or peripheral edema. No GI complaints, no bleeding. No neurologic complaints such as TIA or stroke symptoms. Other systems negative. Physical Exam Vital Signs (Past 24 Hours): Last Vital Signs Temp 36.7 C 12/16/18 04:00 Pulse 60 12/16/18 06:00 Resp 16 12/16/18 06:00 BP 149/92 H 12/16/18 06:00 Pulse Ox 88 L 12/16/18 09:00 Physical Exam: Constitutional: Alert, cooperative and in no distress. HEENT: Unremarkable Neck: No jugular venous distention, carotid pulses are normal and equal bilaterally without bruits. Right IJ temporary pacemaker in place. Pulmonary: Clear to auscultation bilaterally. Cardiac: Regular rhythm with no murmur, gallop or rub. Abdomen: Soft, nontender with normal bowel sounds. Extremities: No edema. Distal pulses intact. Neurologic: No focal findings. Gait is steady. Skin: No rash, ecchymoses or petechiae. Results & Data Diagnostic Findings Admission electrocardiogram shows 3-1 AV block with a ventricular rate of 30 bpm Telemetry: Initially high-grade AV block with 3-1 and 2-1 AV conduction, no long pauses. Following pacemaker implantation she is pacing at 60 bpm. Echocardiogram: Reviewed at the bedside, this shows significant left ventricular dysfunction which appears global, possibly some regional wall motion abnormalities and ejection fraction of about 30%. (1) Syncope Syncope type: unspecified Qualified Code(s): R55 - Syncope and collapse
[2018-12-16] MEDS ORDERED: CARVEDILOL 3.125 MG TAB PO ONE (11:12)
[2018-12-16] MEDS ORDERED: [UNRECOGNIZED DRUG - REMARK] ONE (12:00)
[2018-12-16] MEDS: CARVEDILOL 6.25 MG TAB PO SCH (20:33)
[2018-12-16] MEDS: INSULIN GLARGINE SOLOSTAR 100 UNITS/ML 3 ML PEN SC SCH (20:34)
[2018-12-17] MEDS: ACETAMINOPHEN 500 MG TAB PO PRN ×3 (01:52→19:47)
[2018-12-17] MEDS ORDERED: INSULIN ASPART 100 UNITS/ML 3 ML PEN SC ONE (02:00)
[2018-12-17 04:33] LABS: Hematocrit (blood only) 36.8 % (37-47); Hemoglobin 12.6 g/dL (12.0-16.0); Mean Corpuscular Hgb Conc 34.2 g/dL (32-36); Mean Corpuscular Volume 90.4 fL (80-100); Mean Platelet Volume 10.4 fL (7.4-10.4); Platelet Count 166 K/uL (130-400); RDW Coefficient of Variation 13.1 % (11.5-14.5); RDW Standard Deviation 43.1 fL (36.4-46.3); Red Blood Count 4.07 M/uL (4.2-5.4); White Blood Count 8.64 K/uL (4.8-10.8)
[2018-12-17 04:53] LABS: BUN Creatinine Ratio 19.3 (10-20); Calcium 8.1 mg/dl (8.5-10.1); Creatinine Clr Calc Pharmacy 68.3 ml/min; Est GFR (African American) 75.6; Est GFR (Non-African American) 65.2; Phosphorus 3.6 mg/dl (2.5-4.9); Potassium 4.2 mmol/L (3.5-5.1)
[2018-12-17] MEDS ORDERED: SODIUM CHLORIDE 0.9% 1000ML 1,000 ML IV SCH (05:45)
[2018-12-17] MEDS ORDERED: CLINDAMYCIN 600 MG/54 ML BAG IV SCH (06:00)
[2018-12-17 06:36] LABS: Estimated Average Glucose 286 mg/dl; Hemoglobin A1C 11.6 % (4.5-5.6)
[2018-12-17] MEDS: HEPARIN SOD 5,000 UNIT/0.5 ML VIAL SQ SCH ×3 (06:47→21:12)
--- NOTE | 2018-12-17 07:18 | Critical Care Progress Note ---
Date of Service December 17, 2018 Assessment & Plan (1) Admitted to intensive care unit: (2) Heart block: Reason Critically Ill: 68-year-old female with episodes of syncope/fall with bradycardia/complete heart block with rate of 30s. Given atropine x2 in ED and temporary pacer inserted. Plan for pacer/AICD insertion today. Neuro - [facility]: Negative T12 compression fracture-confirmed with CT spine after patient presented from fall in shower, and complaint of back pain -Other than pain, patient is currently neurologically asymptomatic, fracture stable -We will likely need neurosurgical consult and evaluation once hemodynamically stable after pacer/AICD insertion -We will continue frequent neuro exams - morphine and oxycodone for pain - Ortho-spine consulted for evaluation, f/u recs Cardiac - complete HB/ Bradycardia- currently paced at 60 w/ temporary pacer - heart cath this AM showed non-ischemic process - plan for AICD/ pacemaker today - continue coreg 6.25mg BID - f/u cardilology recs Respiratory - CXR clear, lungs CTA, on RA, monitor GI - no indication for PPI at this time RENAL/LYTES - - maximmize electrolytes - monitor with routine BMPs - - adequate urine output, no adams - strict Is and Os ENDO - DM type II- diagnosed prediabetes, managing w/ weight loss, Hgb A1c 11 - insulin aspart/ glargine for ICU hyperglycemic protocol - consult to music arranger HEME - monitor routine CBCs ID - no evidence of infectious process LINES/IV ACCESS - PIV x1, Right IJ CVC w/ introducer for pacer wires DVT PROPHYLAXIS - heparin subcut, SCDs (3) Syncope: (4) Hyperglycemia: (5) Lower back pain: Supervising Physician Co-Signing Physician Notes I have personally evaluated and examined this patient. I agree with assessment and plan of Wendy MÁRQUEZ. Patient underwent cardiac cath, no intervene oval ischemic lesions. Planned permanent pacemaker later today with electrophysiology. Subjective Ms. Olea is 68-year-old female who presented to the ED with episodes of syncope, with fall in shower which she reportedly hit her head and right shoulder. CT head and x-ray right shoulder negative for acute process. CT of the spine did reveal compression fracture of T12. She was found to be in bradycardic rhythm in the 30s and was given atropine x2 in the ED. Temporary pacemaker was placed and rate set 60 at 5 mA. Patient was taken to Event Promotions Coordinator this a.m., showed nonischemic etiology. Plan for patient to undergo AICD/pacer insertion today. This morning the patient is alert and oriented and appears comfortable, resting in bed. She primarily reports pain in the right shoulder and some back pain. She denies chest pain, syncope, shortness of breath, palpitations, pleuritic pain. She denies tingling or numbness in extremities, weakness, or loss of sensation. Patient currently hemodynamically stable with plan for AICD/pacer insertion now. Patient will likely return to ICU for close observation and monitoring post procedure. Review of Systems All systems reviewed & are unremarkable except as noted in HPI & below Physical Exam Vital Signs (Past 24 Hours): Last Vital Signs Temp 36.7 C 12/17/18 04:00 Pulse 60 12/17/18 06:00 Resp 20 12/17/18 06:00 BP 158/62 H 12/17/18 06:00 Pulse Ox 96 12/17/18 06:00 Constitutional: WD/WN, vitals as above comfortable Eyes: PERRL, conjunctivae normal, anicteric sclerae Neck: trachea midline, no thyromegaly Respiratory: normal respiratory effort, lungs clear to auscultation Cardiovascular: Paced rhythm at 60, no murmur, no edema, good peripheral perfusion, +2 radial and pedal pulses bilaterally Gastrointestinal (Abdomen): normal bowel sounds, soft, nontender, no hepatosplenomegaly Neurologic: PERRL, EOMI, accommodation nl, no face palsy, no dysarthria Full range of motion in upper and lower extremities bilaterally, sensation intact in upper and lower extremities bilaterally Genitourinary: Patient voiding without issue, no loss of bladder sensation Results & Data Laboratory Results Laboratory Results - last 24 hr 12/16/18 12/16/18 12/16/18 07:06 07:06 11:02 WBC RBC Hgb Hct MCV MCH MCHC RDW Std Deviation RDW Coeff of Opal Plt Count MPV Sodium Potassium Chloride Carbon Dioxide Anion Gap BUN Creatinine Est Cr Clr Drug Dosing Est GFR ( Amer) Est GFR (Non-Af Amer) BUN/Creatinine Ratio Glucose POC Glucose 164 H Estimat Average Glucose 286 Hemoglobin A1c 11.6 H Calcium Phosphorus Magnesium Hepatitis C Ab Screen Neg 12/16/18 12/16/18 12/17/18 16:18 20:30 01:45 WBC RBC Hgb Hct MCV MCH MCHC RDW Std Deviation RDW Coeff of Opal Plt Count MPV Sodium Potassium Chloride Carbon Dioxide Anion Gap BUN Creatinine Est Cr Clr Drug Dosing Est GFR ( Amer) Est GFR (Non-Af Amer) BUN/Creatinine Ratio Glucose POC Glucose 238 H 159 H 141 H Estimat Average Glucose Hemoglobin A1c Calcium Phosphorus Magnesium Hepatitis C Ab Screen 12/17/18 12/17/18 04:24 04:24 WBC 8.64 RBC 4.07 L Hgb 12.6 Hct 36.8 L MCV 90.4 MCH 31.0 MCHC 34.2 RDW Std Deviation 43.1 RDW Coeff of Opal 13.1 Plt Count 166 MPV 10.4 Sodium 135 L Potassium 4.2 Chloride 102 Carbon Dioxide 26 Anion Gap 7.0 BUN 17 Creatinine 0.90 Est Cr Clr Drug Dosing 68.3 Est GFR ( Amer) 75.6 Est GFR (Non-Af Amer) 65.2 BUN/Creatinine Ratio 19.3 Glucose 147 H POC Glucose Estimat Average Glucose Hemoglobin A1c Calcium 8.1 L Phosphorus 3.6 Magnesium 2.0 Hepatitis C Ab Screen Medications Administered Active Medications Acetaminophen (Tylenol) 1,000 mg PO Q6H PRN PRN Reason: Pain Stop: 01/16/19 01:20 Last Admin: 12/17/18 01:52 Dose: 1,000 mg Documented by: Carvedilol (Coreg) 6.25 mg PO BID SUSHILA Stop: 01/15/19 20:59 Last Admin: 12/16/18 20:33 Dose: 6.25 mg Documented by: Dextrose (Dextrose 50%) 25 - 50 ml IV UD PRN; Protocol PRN Reason: Hypoglycemia Protocol Stop: 01/14/19 11:59 Glucagon (Glucagen) 1 mg SQ UD PRN; Protocol PRN Reason: Hypoglycemia Protocol Stop: 01/14/19 11:59 Glucose (Dex4 Glucose) 4 - 8 tabs PO UD PRN; Protocol PRN Reason: Hypoglycemia Protocol Stop: 01/14/19 11:59 Glucose (Glucose 40%) 15 - 30 gm PO UD PRN; Protocol PRN Reason: Hypoglycemia Protocol Stop: 01/14/19 11:59 Heparin Sodium (Porcine) (Heparin Sodium (Porcine)) 5,000 units SQ Q8 SUSHILA Stop: 01/14/19 21:59 Last Admin: 12/17/18 06:47 Dose: 5,000 units Documented by: Lorazepam (Ativan) 0.5 mg in 1 mls @ 1 mls/min IV Q4H PRN PRN Reason: Agitation Stop: 01/14/19 11:59 Sodium Chloride (Nss 1000ml) 1,000 mls @ 44 mls/hr IV .[id number] SUSHILA Stop: 12/17/18 23:59 Last Admin: 12/17/18 06:26 Dose: 44 mls/hr Documented by: Lactated Ringer's (Lr) 1,000 mls @ 15 mls/hr IV .Q24H SUSHILA Stop: 12/20/18 04:09 Clindamycin Phosphate (Cleocin) 600 mg in 54 mls @ 100 mls/hr IV PREOP SUSHILA Stop: 12/17/18 18:00 Insulin Aspart (Novolog Flexpen) 0 units SC ACHS [facility] Stop: 01/14/19 16:29 Last Admin: 12/16/18 20:38 Dose: 1 units Documented by: Insulin Glargine (Lantus Solostar Pen) 0 units SC BID SUSHILA; Protocol Stop: 01/15/19 20:59 Last Admin: 12/16/18 20:34 Dose: 15 units Documented by: Miscellaneous (Icu Electrolyte Replacement Protocol) 1 ea N/A UD PRN PRN Reason: for e-lyte repletion Stop: 12/22/18 11:59 Miscellaneous (Carbohydrates For Hypoglycemia) 15 - 30 gm PO UD PRN PRN Reason: Hypoglycemia Treatment Stop: 01/14/19 11:59 Miscellaneous Information (Consult Glycemic Management Pharmacy) 1 ea N/A UD SUSHILA Stop: 01/14/19 13:59 Morphine Sulfate (Morphine Sulfate) 2 mg IV Q4 PRN PRN Reason: Pain 1-5 Stop: 12/29/18 12:56 Morphine Sulfate (Morphine Sulfate) 4 mg IV Q4 PRN PRN Reason: Pain 6-10 Stop: 12/29/18 12:56 Oxycodone HCl (Roxicodone Immediate Rel) 10 mg PO Q6H PRN PRN Reason: Pain Stop: 12/29/18 12:56 (1) Lower back pain Back pain laterality: unspecified Chronicity: unspecified Sciatica presence: without sciatica Qualified Code(s): M54.5 - Low back pain (2) Syncope Syncope type: unspecified Qualified Code(s): R55 - Syncope and collapse
[2018-12-17] MEDS ORDERED: NiCARDipine HCL INJ 2.5 MG/ML 10 ML AMP ONE (07:23)
[2018-12-17] MEDS ORDERED: NITROGLYCERIN/D5W 100MCG/ML 20ML SYR ONE (07:23)
[2018-12-17] MEDS ORDERED: HEPARIN (PORCINE) 1000 UNIT/ML 10 ML (CATH LAB USE ONLY) ONE (07:23)
[2018-12-17] MEDS ORDERED: MIDAZOLAM HCL 1 MG/ML 2ML VIAL ONE (07:23)
[2018-12-17] MEDS ORDERED: fentaNYL citrate 100 MCG/2 ML VIAL ONE ×2 (07:23→09:24)
--- NOTE | 2018-12-17 07:31 | Pre Anesthesia Assessment ---
Date of Service December 17, 2018 Pre Sedation Assessment Vital Signs Temp Pulse Resp BP Pulse Ox 12/17/18 06:00 60 20 158/62 H 96 12/17/18 05:00 60 19 152/83 H 97 12/17/18 04:00 36.7 C 60 20 129/63 94 12/17/18 03:00 60 20 159/76 H 95 12/17/18 02:00 60 20 171/68 H 96 12/17/18 01:00 60 20 145/87 H 95 12/17/18 00:00 36.8 C 60 12 132/74 94 12/16/18 23:00 60 18 164/85 H 95 12/16/18 22:00 60 23 103/80 96 12/16/18 21:00 60 18 139/73 97 12/16/18 20:00 36.9 C 60 24 148/89 H 100 12/16/18 19:00 60 26 H 126/70 97 12/16/18 18:00 60 16 126/108 H 96 12/16/18 17:00 60 16 139/56 L 98 12/16/18 16:00 60 19 158/73 H 98 12/16/18 15:00 60 23 143/66 H 99 12/16/18 14:00 60 20 137/62 97 12/16/18 13:00 60 17 130/67 78 L 12/16/18 12:00 36.3 C L 60 11 L 148/61 H 96 12/16/18 11:00 60 13 125/66 97 12/16/18 10:00 60 12 135/69 96 12/16/18 09:00 60 23 112/73 96 12/16/18 08:00 36.6 C 60 22 160/60 H 89 L Cardiovascular + regular rate Respiratory + respiratory effort normal Pre-Sedation Airway Assessment Smoking Status: Former smoker Hx Sleep Apnea: No Hx Difficult Intubation: No Short, Thick Neck: No Thyromental Distance: > or= 3.5 Finger Breadths Oral Cavity: + WNL Mallampati Class: III ASA: ASA3 NPO Status Date of Last Intake of Fluids: 12/15/18 Time of Last Intake of Fluids: 08:00 Date of Last Intake of Solid Food: 12/15/18 Time of Last Intake of Solid Foods: 08:00 Procedure Planning Contraindications for Sedation: none Current Medications Reviewed: Yes Notes The planned sedation has been discussed with the patient. Informed Consent was obtained. I have identified the patient, determined the appropriateness of sedation and have assessed the patient immediately prior to the procedure. All medicine(s) and interventions are by my order.
--- NOTE | 2018-12-17 08:27 | Cardiac Catheterization ---
Cardiac Cath Procedure: Brief Procedure Date December 17, 2018 Pre-Procedure Diagnosis Pre-Procedure Diagnosis: Cardiomyopathy AUC Score AUC Score: 7 Post-Procedure Diagnosis Post-Procedure Diagnosis: Normal Coronary Arteries Procedure(s) Performed Procedure(s) Performed: Coronary Angiography and Left Heart Cath Candy Separator [employer]robing Chetan Pfeiffer MD Estimated Blood Loss Estimated Blood Loss: 7cc Medication(s) Medication(s): Fentanyl, Heparin, Nicardipine, Nitroglycerin and Versed Preliminary Findings Left dominant system. No obstructive coronary disease. Normal LV pressures. Recommendations Recommendations: None Procedural Complication(s) None Disposition ICU
[2018-12-17] MEDS ORDERED: LIDOCAINE HCL 1% 20 ML VIAL ONE (09:08)
[2018-12-17] MEDS ORDERED: BACITRACIN OINT 0.9 GM PKT ONE (09:08)
[2018-12-17] MEDS ORDERED: BACITRACIN INJ 50,000 UNIT VIAL ONE (09:09)
--- NOTE | 2018-12-17 09:18 | Cardiology Progress Note ---
Date of Service December 17, 2018 Assessment & Plan (1) Syncope: The cause of her syncope is remains unclear. She did present with high- grade AV block but was asymptomatic, she had preadmission symptoms of difficulty with exertion which could be due to the AV block but we have not witnessed heart rate slow enough to cause syncope or pauses. These however could be transient and it is possible bradycardia was a cause of the syncope but not necessarily. Given her left ventricular dysfunction a ventricular tachycardia is also a definite possibility. It could also have been a bradycardia dependent ventricular arrhythmia. After some discussion we feel that the most prudent approach is to treat her for both her bradycardia and the possibility that she had a tachyarrhythmia as a cause of her syncope. (2) Heart block: She presented here with high-grade AV block, this was predominantly 3-1 AV block and periods of 2-1 AV block. I did not see periods of complete heart block although that is possible. A Lyme titer is negative, she does have some evidence of intraventricular conduction abnormalities on her baseline electrocardiogram although they are relatively minor. There does not appear to be a reversible cause therefore she will require permanent pacing. Since she will most likely paced all of the time a biventricular device is indicated given that her left ventricular function already is significantly decreased. Additionally she is at risk of a ventricular arrhythmia in the future and may have had one as a cause of her syncope. We should therefore plan on ICD implantation as well. We will therefore plan on a biventricular ICD. I discussed the indications, procedure, risks and alternatives with her and she understands and agrees. This conversation had already taken place this morning prior to her catheterization and consent was obtained at that time. She has also signed consent for sedation. (3) Cardiomyopathy: She has a definite cardiomyopathy on echocardiography and it is not explainable by her presentation. This predisposes her to ventricular arrhythmias which could have caused the syncope, therefore consideration has to be made to defibrillator implantation rather than just a pacer. We also need to try to sort out why she has a cardiomyopathy. Her Lyme titer is negative, we will obtain some other lab studies for other causes of cardiomyopathy. She did have a cardiac catheterization this morning and has normal coronary arteries, excluding an ischemic cause. I did tell her will most likely not determine the exact etiology of the cardiomyopathy but we will try. Subjective She has returned from her catheterization, she is in good spirits and awake and alert. She is not having any chest discomfort and no other cardiovascular complaints. The arteries were normal. Physical Exam Vital Signs (Past 24 Hours): Last Vital Signs Temp 36.7 C 12/17/18 04:00 Pulse 60 12/17/18 06:00 Resp 20 12/17/18 06:00 BP 158/62 H 12/17/18 06:00 Pulse Ox 96 12/17/18 06:00 Physical Exam: Constitutional: Alert, cooperative and in no distress. Pulmonary: Clear to auscultation bilaterally. Cardiac: Regular rhythm with no murmur, gallop or rub. Abdomen: Soft, nontender with normal bowel sounds. Extremities: No edema. Skin: No rash, ecchymoses or petechiae. Temporary pacemaker via right IJ in place Results & Data Diagnostic Findings Telemetry: Ventricular pacing throughout Temporary pacemaker: Turning the rate down to 30 resulted in transient AV conduction and an average heart rate of about 34 bpm. Predominantly heart block remaining. Catheterization this morning: Normal coronary arteries (1) Syncope Syncope type: unspecified Qualified Code(s): R55 - Syncope and collapse
[2018-12-17] MEDS ORDERED: MIDAZOLAM HCL 5 MG/ML 1 ML VIAL ONE (09:25)
[2018-12-17] MEDS: INSULIN ASPART 100 UNITS/ML 3 ML PEN SC SCH ×4 (11:05→20:04)
[2018-12-17] MEDS: LACTATED RINGER'S 1,000 ML IV SCH (11:06)
--- NOTE | 2018-12-17 11:38 | Operative Report ---
Post Operative Report Pre & Post Diagnosis Operation Date: 12/15/18 10:45 <No data on this case meets the specified criteria> Operation Date: 12/17/18 08:00 <No data on this case meets the specified criteria> Operation Date: 12/17/18 09:00 Preop diagnosis: Nonischemic cardiomyopathy, complete heart block Postop diagnosis: Same Procedure Operation Date: 12/15/18 10:45 Actual Procedures p Temporary Transcutaneous Pacing - Darius Cortes MD Operation Date: 12/17/18 08:00 Actual Procedures p Cath, Left with Cors and Vent - Darius Pfeiffer MD s Cineradiography w/Routine Exam - Darius Pfeiffer MD Operation Date: 12/17/18 09:00 Actual Procedures p ICD Insertion Single or Dual - David Sinclair MD s Lead LV (No Priopr Implant) - David Sinclair MD s Ins/RemTemporary Transvenous Pacer - David Sinclair MD Surgeon David Sinclair MD Automatic Clipper None Estimated Blood Loss 50 Findings Consistent with Post-Op Diagnosis Specimens Temporary pacer, discarded Complications none Disposition Accompanied Patient To Recovery: No Disposition: Surgical ICU Description of Procedure After obtaining informed consent for the procedure prior to her catheterization, the patient was brought to the laboratory and prepped and draped in the standard sterile manner. The left prepectoral region was anesthetized with 1% lidocaine local anesthetic and left axillary venipuncture was performed by percutaneous technique and a guidewire placed through the left subclavian vein into the superior vena cava. The area was further infiltrated with 1% lidocaine local anesthetic and a 7 cm incision was made parallel to the left clavicle and 2 cm below it and carried down to the anterior pectoralis fascia. An ICD pocket was formed by blunt dissection anterior to the pectoralis fascia and a bacitracin- soaked sponge (50,000 units in 50 cc normal saline solution) was placed in the pocket. A 10.5 Belgian Medtronic lead introducer was placed over the guidewire into the left subclavian vein, the dilator and guidewire were removed and a bipolar active fixation steroid tipped ventricular ICD lead was advanced through the introducer into the superior vena cava. A guidewire was placed through the introducer and the introducer was stripped from the lead and guidewire. An 8 Belgian Medtronic lead introducer was placed over the guidewire into the left subclavian vein, the dilator and guidewire were removed and a bipolar active fixation steroid tipped atrial lead was advanced through the introducer into the superior vena cava. A guidewire was placed back through the introducer and the introducer was stripped from the lead and guidewire. Using a curved stylette the ventricular lead was advanced through the right ventricular outflow tract into the pulmonary artery and then using a straight stylette was positioned in the right ventricular apex. The screw was extended fixing the lead in position. Pacing and sensing thresholds were evaluated in bipolar configuration and are recorded on the implant data sheet. Diaphragmatic pacing was evaluated at a 10 V bipolar output as indicated on the data sheet. Using a curved stylette the atrial lead was positioned in the region of the atrial appendage and the screw extended fixing the lead in position. Pacing and sensing thresholds were evaluated in bipolar configuration and are recorded on t implant data sheet. Diaphragmatic pacing was evaluated at a 10 V bipolar output as indicated on the data sheet. Once the leads were in position they were attached to the anterior pectoralis fascia using 1 suture of 2-0 silk around each lead collar. The short guidewire was exchanged for a long guidewire and a [place] coronary sinus sheath was advanced to position in the right atrium. The curved obturator was placed through the sheath and using a right angle inner guiding catheter and x-ray dye the os of the coronary sinus was identified. A guidewire was placed through the introducer into the coronary sinus and the Marjorie sheath was advanced near the coronary sinus. Due to coronary sinus tortuosity the Marjorie sheath could not be easily introduced into the coronary sinus, however the right angled guiding catheter could. Dye was injected in various projections to obtain a coronary sinus angiogram. There were very few options, however a good vessel was identified and a 0.014 inch guidewire was advanced into this vessel. A quadripolar coronary sinus lead was advanced over the guidewire into good distal position. The left ventricular pacing threshold was evaluated in various configu rations, as recorded on the implant data sheet. Diaphragmatic pacing was evaluated, as indicated on the data sheet. Once this lead was in position the introducer system was removed from the lead and the lead was attached to the anterior pectoral fascia using 2 sutures of 2-0 silk around the lead collar. An additional suture of 2-0 silk was placed around each of the atrial and ventricular lead collars as well. The bacitracin-soaked sponge was removed from the pocket, hemostasis was obtained, the ICD was attached to the leads and placed in the pocket with the leads coiled beneath it. The incision was closed with a running double subcutaneous closure of 3-0 Vicryl absorbable suture, followed by running subcuticular skin closure of 4-0 Vicryl absorbable suture. Bacitracin ointment was placed on the incision and a pressure dressing applied. Once the ICD was attached to the leads and placed in the pocket the temporary pacemaker was removed from the right IJ site without difficulty. Hemostasis was obtained. I attest to the content of the Intraoperative Record and any orders documented therein. Any exceptions are noted below.
[2018-12-17] MEDS ORDERED: CARVEDILOL 6.25 MG TAB PO ONE (12:00)
[2018-12-17] MEDS: INSULIN GLARGINE SOLOSTAR 100 UNITS/ML 3 ML PEN SC SCH ×2 (12:22→20:03)
[2018-12-17] MEDS: CARVEDILOL 6.25 MG TAB PO SCH (12:44)
--- NOTE | 2018-12-17 15:20 | Pharmacy Report ---
Pharmacy Glycemic Short Note 2 - Date of Service December 17, 2018 - Glycemic Short BSG Results (Last 24 hours): 12/16/18 12/16/18 12/17/18 16:18 20:30 01:45 Glucose POC Glucose 238 H 159 H 141 H 12/17/18 12/17/18 04:24 12:13 Glucose 147 H POC Glucose 174 H OUTPATIENT ANTIDIABETIC REGIMEN: * N/A ASSESSMENT: 12/17: * Patient successfully transitioned off the infusion. * A1c resulted as 11.6% * Patient was NPO this morning, and did not receive AM lantus until ~1230pm due to cardiac procedures. Discussed with new grad rn and dose was reduced for NPO status. Diet resumed at lunch * Evening dose scaled based on BSG (8 units of BSG 140 mg/dL or less / 15 units if >140 mg/dL) * Continue carb current carb coverage/correction factor. Will monitor and loosen as necessary 12/16 * Patient was started on IV insulin drip yesterday evening due to BSGs > 180 x 2 * Drip continues this AM at 1 unit/hr * BSGs well controlled while on drip * Lantus insulin was continued while pt was on the drip to allow for easier transition to SQ regimen today * Given current infusion rates and BSGs will transition to purely basal/bolus SQ regimen this AM. * Will resume insulin doses as ordered yesterday as these are reasonable starting points now that acute hyperglycemia controlled * A1c results not currently available 12/15 * Patient w/ h/o "pre-diabetes" admitted for [facility], now s/p temporary pacer. - Lyme screening negative. ACS workup ongoing. * GLU on admission 343. Of note, she did receive a dose of glucagon in the ED for bradycardia - her f/u BSG may be even higher * We do not have a recent A1c, however there is an order for this lab tomorrow AM * Will initiate weight based basal/bolus regimen based upon pt weight and "moderate" stress level. 1st doses of both Lantus and Novolog STAT. * Given possibility of ACS, will also add order to begin IV insulin drip per moderate stress protocol to begin if BSGs > 180 x 2 PLAN FOR INPATIENT GLYCEMIC CONTROL: * Basal insulin * Lantus 15 units x 1 this AM to allow for easier transition off drip. Will d/c' insulin drip at noon today. * then BID per the following scale: 0 units if less than 110, 8 units if 110 -140, 15 units if > 140 * Bolus insulin * NovoLog per scale ACHS + 0000 + 0400 tonight * Goal Range: Low 110 mg/dL - High 140 mg/dL * Correction Factor: 25 mg/dL/unit * Nutritional / Prandial insulin per carb ratio of 1 unit per 8 grams CHO consumed PLAN FOR DISCHARGE: * to be determined
--- NOTE | 2018-12-17 17:20 | Cardiac Catheterization ---
Date of Service December 17, 2018 Cardiac Cath Report Cardiac Cath Report Procedure performed: Left heart catheterization, coronary angiography Staff cripple worker: Chetan Pfeiffer MD Indication: The patient is a 68-year-old woman who was admitted to [facility] for symptoms of syncope and discovered to have complete heart block. On evaluation was also noted to have reduced LV systolic function. Based on her newly diagnosed cardiomyopathy mildly elevated biomarkers in association with symptoms she was felt to be a good candidate for coronary angiography. Procedure in detail: The patient was informed of the risks benefits and alternatives to the intended procedure, he understood such and wished to proceed. She was taken to the cardiac catheterization suite in a fasting state. Conscious sedation was administered per protocol and the patient was monitored electrocardiographically throughout today's procedure. The right wrist area was prepped and draped in usual sterile fashion. This area was anesthetized using subcutaneous administration of a lidocaine solution. The right radial artery was then accessed using Seldinger technique, and a arterial sheath was placed at this site over a guidewire. The sheath was used to facilitate passage of the cardiac catheter for coronary angiography and left heart catheterization. Coronary angiogram was then obtained in multiple orthogonal views prior to removal of the catheter. At the conclusion of the procedure the sheath was removed and hemostasis was achieved at the access site using manual pressure. The patient tolerated procedure well, there were no immediate complications. Equipment used: 5 [place] 4 Findings: Opening aortic pressure: 100/49 mmHg Closing aortic pressure: 121/57 mmHg Left ventricular pressure: 100/4 mmHg Left ventricular end-diastolic pressure 7 mmHg Coronary angiography: Left main: Left main coronary artery is very short and nearly nonexistent. There is no significant ostial disease and bifurcated normally into left anterior descending and left circumflex arteries Left anterior descending: Left anterior descending artery was a very large artery which transited the apex of the heart and supplied a portion of the inferior wall. It produced 3 medium size diagonal branches. There was no significant angiographic lesions in this vessel Left circumflex: Left circumflex artery was a codominant vessel. It produced a small first OM branch and a larger second branching OM system with a small ongoing AV groove vessel. There are no significant angiographic lesions in this vessel Right coronary artery: The right coronary artery was a nondominant vessel Impression: Left dominant coronary system No obstructive coronary disease Normal left ventricular end-diastolic pressure
[2018-12-17] MEDS: CARVEDILOL 12.5 MG TAB PO SCH (19:48)
[2018-12-17] MEDS ORDERED: LIDOCAINE 5% 1 PATCH TD SCH (21:00)
--- NOTE | 2018-12-17 22:41 | Hospitalist Progress Note ---
Date of Service December 17, 2018 Assessment & Plan (1) Admitted to intensive care unit: The patient received temporary pacemaker placed earlier in the hospital stay. This was removed and replaced with an biventricular ICD. Overall she seems to be doing better. Overall she is doing better now and is hemodynamically stable. Her pain in her right shoulder is still present. Will place patient on a lidocaine patch. Her troponin seems to be going down. Caridac cath was done and was negative. We also controlling her blood sugar in ICU with ICU glycemic control. We have reviewed her chest x-ray and a shoulder x-ray and they did not reveal any abnormalities but the CT scan of the lumbar spine revealed compression fracture of T12 vertebra. (2) Heart block: As noted above. (3) Syncope: (4) Hyperglycemia: Patient is known of prediabetes she says her sugars have been up of late. She has lost weight attempts to treat her prediabetes. Sliding scale plus long- term insulin ,diabetic education will help us determine her long-term treatment course since she is not from the area we may try metformin once her interventional cardiac procedures past, hemoglobin A1c: was eleavted. Will need to be discharged on metformin and lantus. (5) Lower back pain: Patient has some low back pain after her fall Appreciate input from ortho. Spent 35 minutes in management of patient. Included discussion with consultants and chart review. Subjective Patient is in the ICU postop after biventricular ICD implantation. Patient reports she tolerated the procedure well. Patient only complaint is her right shoulder pain today. Patient denies any other symptoms at this time. Physical Exam Vital Signs (Past 24 Hours): Last Vital Signs Temp 36.7 C 12/17/18 20:00 Pulse 78 12/17/18 22:00 Resp 16 12/17/18 22:00 BP 115/63 12/17/18 22:00 Pulse Ox 88 L 12/17/18 22:00 Physical Exam: the patient appeared well nourished and normally developed. Vital signs as documented. Head exam is unremarkable. normocephalic, atraumatic Neck is without jugular venous distension, thyromegaly, or lymphademopathy Lungs are clear to auscultation and percussion. Cardiac exam reveals Rhythm is regular it is paced on the monitor. First and second heart sounds normal. Abdominal exam reveals normal bowel sounds, no masses, no organomegaly Extremities are mildly edematous and both pedal pulses are present Neurologic exam is A&Ox3, no focal deficits, strength is equal bilateral Psychologically seems neither anxious or depressed Skin is warm Dry without bruises or lesions (1) Lower back pain Back pain laterality: unspecified Chronicity: unspecified Sciatica presence: without sciatica Qualified Code(s): M54.5 - Low back pain (2) Syncope Syncope type: unspecified Qualified Code(s): R55 - Syncope and collapse
[2018-12-18 04:59] LABS: Hematocrit (blood only) 34.5 % (37-47); Hemoglobin 11.9 g/dL (12.0-16.0); Mean Corpuscular Hgb Conc 34.5 g/dL (32-36); Mean Corpuscular Volume 90.6 fL (80-100); Mean Platelet Volume 9.8 fL (7.4-10.4); Platelet Count 163 K/uL (130-400); RDW Coefficient of Variation 13.3 % (11.5-14.5); RDW Standard Deviation 43.5 fL (36.4-46.3); Red Blood Count 3.81 M/uL (4.2-5.4); White Blood Count 7.61 K/uL (4.8-10.8)
[2018-12-18 05:17] LABS: Calcium 8.4 mg/dl (8.5-10.1); Creatinine Clr Calc Pharmacy 70.5 ml/min; Est GFR (African American) 79.9; Est GFR (Non-African American) 68.9; Magnesium 2.2 mg/dl (1.8-2.4); Phosphorus 3.4 mg/dl (2.5-4.9); Potassium 4.2 mmol/L (3.5-5.1)
[2018-12-18] MEDS: HEPARIN SOD 5,000 UNIT/0.5 ML VIAL SQ SCH (05:54)
--- NOTE | 2018-12-18 07:46 | Critical Care Progress Note ---
Date of Service December 18, 2018 Assessment & Plan (1) Admitted to intensive care unit: (2) Heart block: Reason Critically Ill: 68-year-old female with episodes of syncope/fall with bradycardia/complete heart block with rate of 30s. Given atropine x2 in ED and temporary pacer inserted. Heart cath negative for ischemia. Underwent permanent pacer/AICD yesterday. Hemodynamically stable and paced rhythm. Neuro - [facility] ICU: Negative T12 compression fracture-confirmed with CT spine after patient presented from fall in shower, and complaint of back pain -Other than pain, patient is currently neurologically asymptomatic, fracture stable -[facility]th [facility] consulted and evaluated, appreciate recommendations -PT/OT ordered, follow recommendations - morphine and oxycodone for pain Cardiac - complete HB/ Bradycardia-permanent pacer/AICD placed yesterday, currently in paced rhythm 83 bpm on monitor - heart cath yesterday showed non-ischemic process - continue coreg 6.25mg BID -Cardiology following Respiratory - CXR clear, lungs CTA, on nasal cannula 2 L will wean as tolerated, monitor GI - no indication for PPI at this time RENAL/LYTES - - maximmize electrolytes - monitor with routine BMPs - - adequate urine output, no adams - strict Is and Os ENDO - DM type II- diagnosed prediabetes, managing w/ weight loss, Hgb A1c 11 - insulin aspart/ glargine for ICU hyperglycemic protocol HEME - monitor routine CBCs ID - no evidence of infectious process LINES/IV ACCESS - PIVs DVT PROPHYLAXIS - heparin subcut, SCDs (3) Syncope: (4) Hyperglycemia: (5) Lower back pain: Supervising Physician Co-Signing Physician Notes I have personally evaluated and examined this patient. I agree with assessment and plan of Wendy MÁRQUEZ. Patient does not live locally, PT OT eval. Reviewed cardiology notes she would be either stable for downgrade out of the ICU or possible discharge today either way her critical care issues have resolved. And is stable for downgrade out of the ICU Subjective Ms. Olea is 68-year-old female who presented to the ED with episodes of syncope, with fall in shower which she reportedly hit her head and right s houlder. CT head and x-ray right shoulder negative for acute process. CT of the spine did reveal compression fracture of T12. She was found to be in bradycardic rhythm in the 30s and was given atropine x2 in the ED. Temporary pacemaker was placed and rate set 60 at 5 mA. Patient was taken to [employer] this a.m., showed nonischemic etiology. Patient underwent permanent pacer/AICD yesterday, as patient was considered high risk of developing ventricular dysrhythmias. Currently in paced rhythm of 83 bpm on monitor. This a.m. the patient is alert and oriented x3 and comfortable sitting up in bed. She still reports shoulder and back pain. PT/OT ordered per [facility] recommendations. She denies chest pain, syncope, shortness of breath, palpitations, pleuritic pain. She denies tingling or numbness in extremities, weakness, or loss of sensation. Patient currently hemodynamically stable and okay for downgrade to telemetry. Physical Exam Vital Signs (Past 24 Hours): Last Vital Signs Temp 36.6 C 12/18/18 00:00 Pulse 83 12/18/18 06:31 Resp 19 12/18/18 06:31 BP 149/75 H 12/18/18 06:31 Pulse Ox 97 12/18/18 06:31 Constitutional: WD/WN, vitals as above comfortable Eyes: PERRL, conjunctivae normal, anicteric sclerae Neck: trachea midline, no thyromegaly Respiratory: normal respiratory effort, lungs clear to auscultation Cardiovascular: Heart Sounds: normal S1 and normal S2 Paced rhythm on monitor, good peripheral perfusion, radial and pedal pulses +2 bilaterally Gastrointestinal (Abdomen): normal bowel sounds, soft, nontender, no hepatosplenomegaly Neurologic: PERRL, EOMI, accommodation nl, no face palsy, no dysarthria Symmetrical strength bilaterally in upper and lower extremities (1) Lower back pain Back pain laterality: unspecified Chronicity: unspecified Sciatica presence: without sciatica Qualified Code(s): M54.5 - Low back pain (2) Syncope Syncope type: unspecified Qualified Code(s): R55 - Syncope and collapse
[2018-12-18] MEDS: INSULIN GLARGINE SOLOSTAR 100 UNITS/ML 3 ML PEN SC SCH (08:00)
[2018-12-18] MEDS: CARVEDILOL 12.5 MG TAB PO SCH (08:00)
--- NOTE | 2018-12-18 08:00 | Consultation Report ---
DATE OF CONSULTATION: 12/15/2018 Orthopedic consult with regard to a T12 compression deformity albeit mild. HISTORY OF PRESENT ILLNESS: Abena is delightful. She had evidence of heart block. Presented to the Emergency Room after she passed out. Came to the Emergency Room. Her heart rate was quite low in the 30s, given some doses of medication. Also had lower back difficulty. She was taken urgently to cardiac catheterization. She had a temporary pacemaker placed and she was in edema with some systemic heart failure. Evidently through the fall, she also suffered an injury to her thoracolumbar area and had some pain. In addition, she has some right shoulder pain. PAST MEDICAL HISTORY: Prediabetes. PAST SURGICAL HISTORY: Her only surgery was a ganglion cyst removal. FAMILY HISTORY: Abdominal aneurysm. ALLERGIES: AMOXICILLIN. SOCIAL HISTORY: Lives in [place], feels safe at home. Former smoker. REVIEW OF SYSTEMS: She denies any blurred vision, double vision, tinnitus, or vertigo. Denies chest pain, palpitations. No asthma, wheezing, shortness of breath. No nausea, vomiting. No urgency, frequency, dysuria. PHYSICAL EXAMINATION: GENERAL: She is alert and oriented. VITAL SIGNS: Stable, 36.6 temperature, pulse now around 52, blood pressure 160/90. NEUROLOGIC: Intact. A 5/5 strength. Good sensation, motor ability. She has no deficit. MUSCULOSKELETAL: Her right shoulder demonstrates some decreased range of motion, rotation, external, internal and abduction. IMAGING DATA: Radiographs demonstrate pretty mild compression fracture of T12. No retropulsion, no instability. Shoulder x-ray was essentially normal with some early degenerative changes. IMPRESSION: Includes that of a mild compression fracture of T12 and a contusion right shoulder. PLAN: Would include a nonsurgical approach of course. Back brace I think would be cumbersome, so I am not ordering that. I will order some little bit of PT for her right shoulder and follow along. MACEY
[2018-12-18] MEDS: INSULIN ASPART 100 UNITS/ML 3 ML PEN SC SCH ×2 (08:02→12:02)
--- NOTE | 2018-12-18 09:08 | Cardiology Progress Note ---
Date of Service December 18, 2018 Assessment & Plan (1) ICD (implantable cardioverter-defibrillator) in place: She is doing well postop biventricular ICD implantation. The site looks good, the device is working well. Chest x-ray is pending. From my standpoint she should be stable for discharge if her x-ray looks good. (2) Cardiomyopathy: I am hopeful that her cardiomyopathy will improve with medical therapy. She is on middle doses of carvedilol but I do not want to go up too quickly on that although if her blood pressure remains elevated we can. Instead I am going to add an RENÉ inhibitor. I wanted to hold off until we had her creatinine back today after the dye load yesterday but her creatinine is stable. (3) Hypertension: Her blood pressure has been significantly elevated, even on moderate doses of carvedilol. I am going to add lisinopril to her regimen. If she remains hypertensive and remains in the hospital we can go up on the carvedilol. Subjective She is feeling well today, tired but no significant chest discomfort or incisional discomfort. Physical Exam Vital Signs (Past 24 Hours): Last Vital Signs Temp 36.8 C 12/18/18 08:01 Pulse 89 12/18/18 08:01 Resp 25 H 12/18/18 08:01 BP 160/79 H 12/18/18 08:00 Pulse Ox 96 12/18/18 08:01 Physical Exam: ICD site: The incision looks clean and dry, minimal ecchymosis, no swelling. Cardiac rhythm is regular with no murmur or rub. Results & Data Diagnostic Findings ECG: Sinus rhythm, biventricular paced appropriately Telemetry: Normal biventricular ICD function ICD evaluation: Excellent pacing and sensing characteristics Chest x-ray: Pending
[2018-12-18] MEDS ORDERED: LISINOPRIL 5 MG TAB PO SCH (09:15)
--- NOTE | 2018-12-18 10:24 | XRay Report ---
XR chest 2V routine CLINICAL HISTORY: EXACT TIME ORDERED Evaluate for pneumothorax and l lead placement COMPARISON STUDY: No previous studies for comparison. FINDINGS: Permanent bipolar cardiac pacemaker/defibrillator with leads in good position. Residual tem porary pacer leads are noted. Mild bibasilar atelectasis. No evidence for pneumothorax. IMPRESSION: Permanent bipolar cardiac pacemaker/defibrillator placement with leads in good position. No evidence pneumothorax. The above report was generated using voice recognition software. It may contain grammatical, syntax or spelling errors. Electronically signed by: Arian Chadwick M.D. 12/18/2018 9:48 AM
[2018-12-18] MEDS: LACTATED RINGER'S 1,000 ML IV SCH (13:10)
--- NOTE | 2018-12-26 21:25 | Discharge Summary ---
Date of Service December 18, 2018 Admission HPI Per Admitting Provider Per ER physicians note "The patient is a 68 year old female who presents to the Emergency Room with a heart block. The patient passed out last night and again this morning. Her heart rate was in the 30s prior to arrival, and she was given two doses of atropine. EMS reports that when she passed out this morning, she fell in the shower, striking the back of her head and injuring her lower back. She states that she has lower back pain exacerbated by breathing but denies head or neck pain. She reports that she was told in the past that she was pre- diabetic. She checked her blood sugar with her husbands monitor, and it was in the 500s yesterday and in the 200s today. She notes ankle swelling in the past week and reports a current cough and nausea. She states that she has some left leg numbness from a prior ganglion cyst. She reports that she is currently visiting from [place]. She denies any other medical problems. " Patient was taken urgently to the cardiac catheterization lab where temporary pacemaker was placed. Initial chest x-ray showed pulmonary edema consistent with likely systolic heart failure and she does upon further questioning give a history of prehospital exertional dyspnea and some chest heaviness. She is a distant smoking history but has quit since age 33 In the ICU she is stable has no shortness of breath chest pain or pressure Principal Diagnosis complete heart block Discharge Exam the patient appeared well nourished and normally developed. Vital signs as documented. Head exam is unremarkable. normocephalic, atraumatic Neck is without jugular venous distension, thyromegaly, or lymphademopathy Lungs are clear to auscultation and percussion. Cardiac exam reveals Rhythm is regular it is paced on the monitor. First and second heart sounds normal. Abdominal exam reveals normal bowel sounds, no masses, no organomegaly Extremities are mildly edematous and both pedal pulses are present Neurologic exam is A&Ox3, no focal deficits, strength is equal bilateral Psychologically seems neither anxious or depressed Skin is warm Dry without bruises or lesions Discharge Data Allergies Allergy/AdvReac Type Severity Reaction Status Date / Time amoxicillin Allergy Anaphylaxis Unverified 12/15/18 11:47 erythromycin base Allergy Unknown Unverified 12/15/18 11:47 green pepper AdvReac Heartburn Verified 12/15/18 17:04 Consultations 12/15/18 11:10 ED Decision to Admit Stat 12/15/18 11:27 Consult Natural Resource Manager Routine 12/15/18 12:00 Consult Case Management - Discharge Planning Routine 12/15/18 12:01 Consult Natural Resource Manager Routine 12/15/18 12:20 Consult Cardiology Routine 12/17/18 10:16 Consult Orthopedic Surgery Routine Procedures Performed Operation Date: 12/15/18 10:45 Actual Procedures p Temporary Transcutaneous Pacing - Darius Cortes MD Operation Date: 12/17/18 08:00 Actual Procedures p Cath, Left with Cors and Vent - Darius Pfeiffer MD s Cineradiography w/Routine Exam - Darius Pfeiffer MD Operation Date: 12/17/18 09:00 Actual Procedures p ICD Insertion Single or Dual - David Sinclair MD s Lead LV (No Priopr Implant) - David Sinclair MD s Ins/RemTemporary Transvenous Pacer - David Sinclair MD Ordered Studies 12/15/18 10:43 CT lumbar spine wo con Stat 12/15/18 10:46 CL Cath Imgs for PACS use only Stat CL Cath Imgs for PACS use only Stat 12/17/18 07:39 CL Cath Imgs for PACS use only Routine 12/17/18 09:15 EP Lab Images for PACS ONCE Hospital Course (1) Admitted to intensive care unit: The patient received temporary pacemaker placed earlier in the hospital stay. This was removed and replaced with an biventricular ICD. Overall she seems to be doing better and is hemodynamically stable. Her pain in her right shoulder is still present. Will place patient on a lidocaine patch. Her troponin seems to be going down. Caridac cath was done and was negative. We have reviewed her chest x-ray and a shoulder x-ray and they did not reveal any abnormalities but the CT scan of the lumbar spine revealed compression fracture of T12 vertebra. (2) Heart block: As noted above. (3) Syncope: (4) Hyperglycemia: Patient is known of prediabetes she says her sugars have been up of late. She has lost weight attempts to treat her prediabetes. Sliding scale plus long- term insulin ,diabetic education will help us determine her long-term treatment course since she is not from the area we may try metformin once her interventional cardiac procedures past, hemoglobin A1c: was eleavted. Will need to be discharged on metformin and lantus. (5) Lower back pain: Patient has some low back pain after her fall Appreciate input from ortho. Total Time Total Time Spent Total Time Spent (In Minutes): 31 Total Time Includes: Examination of the Patient, Discharge Planning and Me dication Reconciliation Discharge Plan Discharge Items Patient Disposition: Home - Self-Care Reason For Visit: TEMP PACER Discharge Diagnosis: Heart block Discharge Goals: Improve function and Increase independence Activity: Resume your previous activity Non-emergency contact: Primary Care Provider Call non-emergency contact if: you have any medication questions Follow-up/Referrals: PCP,NO [Primary Care Provider] - Diet: Carb Consistent or DM2 Addtl Provider Instructions: You were found to have a heart block and heart failure. You had a pacemaker and an implantable cardioverter defibrillator placed. You were also found to be diabetic. You will be started on insulin. Please followup with PCP within 1 and 2 weeks. You can also buy over the counter lidoderm patches for your shoulder. Call your Primary Care doctor if any of the following symptoms or problems start or get worse: * Shortness of breath or difficulty breathing * Wake up at night short of breath * Chest pain * Cough * Swelling of your hands, feet, or legs * More fatigued or tired with your normal activity * Palpitations - sudden fast heart beats WEIGHT * Weigh yourself every morning after using the bathroom. * Use the same scale. * Wear the same amount of clothing. * Write your weight down on a chart. * Call your Primary Care doctor if you gain more than 2-3 pounds in 1-2 days. MEDICATIONS * Use this discharge instruction sheet for medication instructions. * Take your medications at the time your doctor ordered. * Do not skip a dose of your medicines. * If you miss a dose of medicine, take it as soon as possible, but DO NOT DOUBLE A DOSE. * Read your medicine information when you get home. * Know all of the side effects of your medicine. If in doubt, ask your pharmacist * Call your Primary Care doctor's office if you have any side effects. * Be sure all of your doctors know what medicine and herbs you take (including cold, flu, and herbal medicine). Take the following with you to your follow-up doctor appointments: * Weight Chart * Medication List * List of questions Do not drink excessive alcohol, beer or wine. Prescriptions: New carvedilol 12.5 mg Tablet 12.5 mg PO BID Qty: 60 RF: 0 lisinopril [Zestril] 5 mg Tablet 5 mg PO QAM Qty: 30 RF: 0 Lantus Solostar U-100 Insulin 100 unit/mL (3 mL) Insulin Pen 8 unit SC BID Qty: 3 RF: 0 Stand-Alone Forms: [facility] Discharge Orders: Discharge Order (Routine); Ordered 12/18/18 Ordered By: Tyler Thompson Admission Data Admit Date/Time: 12/15/18 11:26 Attending Provider: Tyler Thompson Admit Provider: Carlos Randolph Primary Care Provider: PCP,NO Other Providers: Flo Eubanks ; Dafne David ; David Sinclair ; Gabriel Thomas Service: Intensive Care Unit Other Interventions: Discharge Summary Assessment (RN) Last Done: 12/18/18 14:04 DC Date/Time DO NOT enter until pt leaves facility: 12/18/18 14:45
== END 2018-12-18 14:45 | disposition home or self-care (01) | DRG 286 ==
LOC: ED 10:33 → CC 11:11 → 1E 11:12 → SUATTDRO 11:26
PROC: CLB.TTP (2018-12-15 10:45)
PROC: EPB.ICD (2018-12-17 09:00)
DX: I44.2 Atrioventricular block, complete; M54.5 Low back pain; I42.9 Cardiomyopathy, unspecified; W18.2XXA Fall in (into) shower or empty bathtub, initial encounter; M48.50XA Collapsed vertebra, not elsewhere classified, site unspecified, initial encounter for fracture; E11.65 Type 2 diabetes mellitus with hyperglycemia; Z88.1 Allergy status to other antibiotic agents; I11.0 Hypertensive heart disease with heart failure; R00.1 Bradycardia, unspecified; Z87.891 Personal history of nicotine dependence; I50.21 Acute systolic (congestive) heart failure